=== PATIENT | female | born 1995 | race African-American/Black ===

== ENCOUNTER 2019-12-16 10:30 | Emergency (ER) | payer OTHER ==
[2019-12-16 10:57] LABS: BILIRUBIN,URINE NEGATIVE (NEGATIVE); GLUCOSE, URINE (UA) NEGATIVE (NEGATIVE); KETONES,URINE (UA) TRACE mg/dL (NEGATIVE); LEUKOCYTE ESTERASE, URINE NEGATIVE (NEGATIVE); NITRITE,URINE NEGATIVE (NEGATIVE); OCCULT BLOOD,URINE NEGATIVE (NEGATIVE); PROTEIN,URINE NEGATIVE (NEGATIVE); UROBILINOGEN,URINE 1 (NORMAL) E.U./dL (NORMAL)
[2019-12-16 10:59] LABS: CLARITY,URINE SL. CLOUDY (CLEAR); HCG UR QUAL POSITIVE
[2019-12-16 11:09] LABS: BACTERIA,URINE Moderate /HPF (None Seen); RBC,URINE 0-5 /HPF (0-5); SQUAMOUS EPITHELIAL CELL,UR MANY Squamous (<= Few)
--- NOTE | 2019-12-16 12:33 | ED Physician Documentation ---
PD HPI FEMALE - Stated complaint Stated Complaint: FEMALE - 6WK - Chief complaint Chief Complaint: Abd Pain - History obtained from History obtained from: Patient - History of Present Illness Timing - onset: Today Timing - duration: Days (1) Timing - details: Gradual onset Pain level max: 2 Pain level max: 2 Associated symptoms: Pelvic pain (States occasional cramping). No: Vaginal pain, Vaginal bleeding, Vaginal discharge, Dysuria, Urinary frequency, Hematuria Contributing factors: [employer] History: G (1), P (0) Recently seen: Not recently seen - Additional information Additional information: Patient believes that she is approximately 6 weeks . She states she has had some lower abdominal cramping. No vaginal bleeding or discharge. Has not seen an OB yet. Review of Systems Constitutional: denies: Fever, Chills GI: denies: Vomiting, Diarrhea Skin: denies: Rash Musculoskeletal: denies: Neck pain, Back pain Neurologic: denies: Headache PD PAST MEDICAL HISTORY - Past Medical History Past Medical History: No - Past Surgical History Past Surgical History: No - Present Medications Home Medications: Ambulatory Orders Medication Instructions Recorded Confirmed Pnv No.103/Folic/Om3s/Fish Oil 12/16/19 12/16/19 [ Gummies] - Allergies Allergies/Adverse Reactions: Allergies Allergy/AdvReac Type Severity Reaction Status Date / Time No Known Drug Allergies Allergy Verified 12/16/19 10:36 PD ED PE NORMAL - Vitals Vital signs reviewed: Yes - General General: Alert and oriented X 3, No acute distress, Well developed/nourished - HEENT HEENT: Moist mucous membranes - Neck Neck: Supple, no meningeal sign - Cardiac Cardiac: RRR, Strong equal pulses - Respiratory Respiratory: No respiratory distress, Clear bilaterally - Abdomen Abdomen: Soft, Non tender, Non distended - Female Female : Pt declined - Back Back: No CVA TTP, No spinal TTP - Derm Derm: Warm and dry - Extremities Extremities: No edema - Neuro Neuro: Alert and oriented X 3 - Psych Psych: Normal mood, Normal affect Results - Vitals Vitals: Vital Signs - 24 hr 12/16/19 12/16/19 12/16/19 10:33 12:36 14:00 Temperature 36.8 C 36.9 C 37.1 C Heart Rate 65 65 70 Respiratory 16 16 16 Rate Blood Pressure 142/67 H 139/70 H 134/70 H O2 Saturation 100 99 99 Oxygen O2 Source Room air - Labs Labs: Laboratory Tests 12/16/19 12/16/19 12/16/19 10:45 12:25 12:25 WBC 6.3 RBC 4.28 Hgb 11.6 L Hct 36.3 L MCV 84.8 MCH 27.1 MCHC 32.0 RDW 14.6 Plt Count 348 MPV 9.0 Neut # (Auto) 3.8 Lymph # (Auto) 1.8 [place] # (Auto) 0.5 Eos # (Auto) 0.1 Baso # (Auto) 0.0 Absolute Nucleated RBC 0.00 Nucleated RBC % 0.0 Sodium Potassium Chloride Carbon Dioxide Anion Gap BUN Creatinine Estimated GFR (MDRD) Glucose Calcium Total Bilirubin AST ALT Alkaline Phosphatase Total Protein Albumin Globulin Albumin/Globulin Ratio Lipase HCG, Quant 90617.00 Urine Color YELLOW Urine Clarity SL. CLOUDY Urine pH 6.0 Ur Specific [place] 1.025 Urine Protein NEGATIVE Urine Glucose (UA) NEGATIVE Urine Ketones TRACE Urine Occult Blood NEGATIVE Urine Nitrite NEGATIVE Urine Bilirubin NEGATIVE Urine Urobilinogen 1 (NORMAL) Ur Leukocyte Esterase NEGATIVE Urine RBC 0-5 Urine WBC 0-3 Ur Squamous Epith Cells MANY Squamous H Urine Bacteria Moderate H Ur Microscopic Review INDICATED Urine Culture Comments NOT INDICATED Urine HCG, Qual POSITIVE Blood Type 12/16/19 12/16/19 12:28 12:28 WBC RBC Hgb Hct MCV MCH MCHC RDW Plt Count MPV Neut # (Auto) Lymph # (Auto) [place] # (Auto) Eos # (Auto) Baso # (Auto) Absolute Nucleated RBC Nucleated RBC % Sodium 134 L Potassium 3.6 Chloride 100 L Carbon Dioxide 23 Anion Gap 11.0 BUN 9 Creatinine 0.8 Estimated GFR (MDRD) 105 Glucose 94 Calcium 9.6 Total Bilirubin 0.4 AST 18 ALT 16 Alkaline Phosphatase 80 Total Protein 8.2 Albumin 4.0 Globulin 4.2 Albumin/Globulin Ratio 1.0 Lipase 28 HCG, Quant Urine Color Urine Clarity Urine pH Ur Specific [place] Urine Protein Urine Glucose (UA) Urine Ketones Urine Occult Blood Urine Nitrite Urine Bilirubin Urine Urobilinogen Ur Leukocyte Esterase Urine RBC Urine WBC Ur Squamous Epith Cells Urine Bacteria Ur Microscopic Review Urine Culture Comments Urine HCG, Qual Blood Type O POSITIVE - Rads (name of study) OB ultrasound Radiology: Prelim report reviewed, EMP read contemporaneously, See rad report (Single viable intrauterine at EGA weeks/days with JENNIFER 08/10/2020 based on crown-rump length, which is concordant with clinical dates. 2. Assigned dating is JENNIFER 08/10/2020 based on current ultrasound. ) PD MEDICAL DECISION MAKING - ED course Complexity details: reviewed results, re-evaluated patient, considered differential, d/w patient, d/w family ED course: Patient with a normal intrauterine . No vaginal bleeding. Urinalysis appears contaminated. No symptoms of UTI. Will not treat at this time. We will have her follow-up with her doctor for further care. Patient counseled regarding signs and symptoms for which I believe and urgent re-evaluation would be necessary. Patient with good understanding of and agreement to plan and is comfortable going home at this time This document was made in part using voice recognition software. While efforts are made to proofread this document, sound alike and grammatical errors may occur. Departure - Departure Disposition: 01 Home, Self Care Clinical Impression: Pelvic cramping Qualifiers: Weeks of gestation: less than 8 weeks Qualified Code(s): Z3A.01 - Less than 8 weeks gestation of Condition: Good Instructions: ED Care, ED Preg Established Normal Sxs Follow-Up: Cristy Daniels ARNP [Primary Care Provider] - Within 1 week Comments: Your ultrasound appears normal today. You have an intrauterine at approximately 6 weeks. Follow-up with your doctor for further care. Discharge Date/Time: 12/16/19 15:05
[2019-12-16 12:34] LABS: BASOPHILS % (AUTO) 0.3 %; EOSINOPHILS # (AUTO) 0.1 10^3/uL (0.0-0.7); EOSINOPHILS % (AUTO) 1.1 %; HGB - HEMOGLOBIN 11.6 g/dL (12.0-16.0); LYMPHOCYTES # (AUTO) 1.8 10^3/uL (1.5-3.5); MEAN CORPUSCULAR HEMOGLOBIN 27.1 pg (27.0-31.0); MEAN CORPUSCULAR VOLUME 84.8 fL (81.0-99.0); MONOCYTES # (AUTO) 0.5 10^3/uL (0.0-1.0); MONOCYTES % (AUTO) 8.3 %; NEUTROPHILS # (AUTO) 3.8 10^3/uL (1.5-6.6); NEUTROPHILS % (AUTO) 61.1 %; PLT - PLATELET COUNT 348 10^3/uL (130-450); RED BLOOD COUNT 4.28 10^6/uL (4.20-5.40); RED CELL DISTRIBUTION WIDTH 14.6 % (12.0-15.0); WHITE BLOOD COUNT 6.3 x10^3/uL (4.8-10.8)
[2019-12-16 13:31] LABS: BILIRUBIN,TOTAL 0.4 mg/dL (0.2-1.0); CALCIUM 9.6 mg/dL (8.5-10.3); CREATININE 0.8 mg/dL (0.4-1.0); TOTAL PROTEIN 8.2 g/dL (6.7-8.2)
--- NOTE | 2019-12-16 14:36 | Ultrasound Report ---
Reason: early , lower abd pain Procedure Date: 12/16/2019 Accession Number: [id number] / [id number] Procedure: US - OB First Trimester CPT Code: Final Report FULL RESULT: EXAM: FIRST TRIMESTER OBSTETRIC ULTRASOUND (Less than 11 weeks) EXAM DATE: 12/16/2019 02:12 PM. CLINICAL HISTORY: Early , lower abd pain. LMP: 11/03/2019. COMPARISONS: None. TECHNIQUE: Transabdominal and transvaginal ultrasound examination with static image documentation. CLINICAL DATES: EGA 6 weeks 1 day with JENNIFER 08/09/2020 based on LMP. ASSESSMENT: Gestational Sac: Single intrauterine. Mean gestational sac diameter: 11.2 mm = 5 weeks 6 days. Embryo: CRL (crown-rump length) 3.9 mm = 6 weeks 0 days. Cardiac activity: 104 beats per minute. Yolk sac: 2.9 mm. Amniotic fluid: Not accurately assessed at this gestational age. Early placenta: Not visible at this gestational age. Other: No perigestational fluid collection demonstrated. MATERNAL STRUCTURES: Uterus: Anteverted/Retroverted. Unremarkable. Cervix: Closed. Nabothian cysts.. Right Ovary/Adnexa: The ovary measures 2.4 x 1.8 x 1.9 cm, volume 4.3 cc. Unremarkable. Left Ovary/Adnexa: The ovary measures 3.4 x 2.8 x 2.5 cm, volume 5.0 cc. There is a 1.4 cm diameter corpus luteum. Free Fluid: None. Other: None. IMPRESSION: 1. Single viable intrauterine at EGA weeks/days with JENNIFER 08/10/2020 based on crown-rump length, which is concordant with clinical dates. 2. Assigned dating is JENNIFER 08/10/2020 based on current ultrasound. RADIA
[2019-12-16 14:54] VITALS: BP 134/70
== END 2019-12-16 15:05 | disposition home or self-care (01) ==
LOC: ED 10:30
DX: O99.89 Other specified diseases and conditions complicating pregnancy, childbirth and the puerperium (principal); R10.2 Pelvic and perineal pain; Z3A.01 Less than 8 weeks gestation of pregnancy
CPT/HCPCS: 36415; 76801; 76817; 80053; 81001; 81003; 81025; 83690; 84702; 85025; 86900; 86901; 87086; 99284

== ENCOUNTER 2020-04-01 15:37 | Emergency (ER) | payer OTHER ==
[2020-04-01 15:54] VITALS: BP 141/65
--- NOTE | 2020-04-01 16:23 | ED Physician Documentation ---
PD HPI HEADACHE - Stated complaint Stated Complaint: FRANCIS, HIGH BP - Chief complaint Chief Complaint: Heent - History obtained from History obtained from: Patient (This [place] [facility] [place] with a report of hypertension and headache.Labs to work her up for preeclampsia. When she arrived in the waiting room I updated the on-call OB, Dr. Peralta and ordered reportedly Dr. Peralta felt it best if the patient went over to labor and delivery and and I did not personally see the patient.) PD PAST MEDICAL HISTORY - Past Surgical History Past Surgical History: No - Present Medications Home Medications: Ambulatory Orders Medication Instructions Recorded Confirmed Pnv No.103/Folic/Om3s/Fish Oil 12/16/19 12/16/19 [ Gummies] - Allergies Allergies/Adverse Reactions: Allergies Allergy/AdvReac Type Severity Reaction Status Date / Time No Known Drug Allergies Allergy Verified 04/01/20 15:49 - Social History Does the pt smoke?: No Smoking Status: Never smoker Results - Vitals Vitals: Vital Signs - 24 hr 04/01/20 15:49 Temperature 36.4 C L Heart Rate 85 Respiratory 15 Rate Blood Pressure 141/65 H O2 Saturation 100 Oxygen O2 Source Room air Departure - Departure Disposition: ED Place in Observation Clinical Impression: Elevated blood pressure affecting in second trimester, antepartum Headache Qualifiers: Headache type: unspecified Headache chronicity pattern: acute headache Intractability: not intractable Qualified Code(s): R51 - Headache Condition: Stable
== END 2020-04-01 16:22 ==
LOC: ED 15:37
DX: Z53.9 Procedure and treatment not carried out, unspecified reason (principal)
CPT/HCPCS: 80053; 83615; 83690; 85025

== ENCOUNTER 2020-04-03 14:11 | Outpatient (CLI) | payer OTHER ==
[2020-04-03] MEDS ORDERED: IRON DEXTRAN 1,000 MG in SODIUM CHLORIDE 0.9% 250 ML IV ONE (14:14)
[2020-04-03 16:17] VITALS: BP 136/71
--- NOTE | 2020-04-03 16:26 | PROVIDER PROGRESS NOTE ---
- HPI Chief Complaint: Other Current : Vital Signs Temperature 97.9 F 04/03/20 14:11 Heart Rate 99 04/03/20 14:11 Respiratory Rate 16 04/03/20 14:11 Blood Pressure 140/70 H 04/03/20 14:11 Temperature 97.9 F 04/03/20 14:11 Heart Rate 92 04/03/20 16:00 Respiratory Rate 16 04/03/20 16:00 Blood Pressure 136/71 H 04/03/20 16:00 O2 Saturation 23yo G1 at 21w5d returns for BP check and IV iron. She was seen on 04/01 with headaches, elevated BP (140-160/70-80's), anemia and hypokalemia. She was diagnosed with chronic HTN based on elevated BP's here at 6 weeks and started on nifedipine 30 XL. She was also given KCl 40mEq PO. Her microcytic anemia was treated with 1000mg IV iron today. She reports feeling tired but much better, headache resolved. Has only needed one fioricet. - Procedures OB Procedure Performed: Other (Doppler normal) NST Procedure: NST Procedure Not indicated due to early gestational age. +doppler Stop Time 16:05 Service Date of procedure: 04/03/20 - Plan Plan: BP's here today improved 130-140's/70-80 but not at target. Will increase nifedipine to 60mg xl qd. Continue baby aspirin and calcium/vit D Pt will initiate transfer of care from [facility].
== END 2020-04-03 16:20 | disposition home or self-care (01) ==
LOC: WFO 14:11 → FBP 14:13 → WFO 16:20
PROVIDERS: ATTEND Obstetrics & Gynecology
DX: O99.012 Anemia complicating pregnancy, second trimester (principal); D50.9 Iron deficiency anemia, unspecified; O10.912 Unspecified pre-existing hypertension complicating pregnancy, second trimester; Z3A.21 21 weeks gestation of pregnancy
CPT/HCPCS: 96365; J1750

== ENCOUNTER 2020-04-12 14:49 | Outpatient (CLI) | payer OTHER | END 2020-04-12 23:59 | disposition EMS.NT | LOC: EMS 14:49 | PROVIDERS: ATTEND Surgery | DX: R00.2 Palpitations (principal); R42 Dizziness and giddiness ==

== ENCOUNTER 2020-05-31 08:33 | Outpatient (CLI) | payer OTHER ==
--- NOTE | 2020-05-31 11:26 | Ultrasound Report ---
PROCEDURE: OB F/U or Repeat INDICATIONS: HYPERTENSION IN OUTSIDE/PRIOR DATING DATA: Last menstrual period (LMP): 11/03/2019. LMP-based estimated date of delivery (JENNIFER): 08/09/2020. First dating scan (date and location): 12/16/2019. Estimated date of delivery (JENNIFER) from first dating scan: 08/10/2020. TECHNIQUE: Real-time scanning was performed of the fetus, with image documentation and biometric measurements. Endovaginal scanning: Not performed COMPARISON: Correlation made to outside ultrasound report dated 03/22/2020 FINDINGS: General: A single living intrauterine gestation is present. Presentation: Cephalic Placenta: Placental position is left lateral, without previa. Amniotic fluid index: 10.2 cm, normal for gestational age. heart rate: 149 beats per minute. Maternal cervical canal: Approximately 4.5 cm long; normal length is 2.5 cm or more. biometrics: Biparietal diameter: 7.8 cm, 31 weeks, 2 days Head circumference: 28.5 cm, 39 weeks, 2 days Abdominal circumference: 27.0 cm, 31 weeks, 1 day Femur length: 5.8 cm, 30 weeks, 2 days Estimated gestational age from initial scan: 29 weeks, 6 days. Composite gestational age from present scan: 31 weeks, 0 days Estimated weight and percentile: 1662 g, 30 weeks, 4 days, 75th percentile Measurement variability in biometric dating: +/- 10 days from 12-20 weeks gestation, +/- 2 weeks from 20-30 weeks gestation, +/- 3 weeks at 30 weeks gestation or more. IMPRESSION: 1. Single live intrauterine . 2. Appropriate and symmetric growth, 8 days ahead of the clinically assigned gestational age. Reviewed by: Yolanda Castillo MD on 05/31/2020 11:25 AM PDT Approved by: Yolanda Castillo MD on 05/31/2020 11:25 AM PDT Station ID: [id number]
== END 2020-05-31 08:34 | disposition home or self-care (01) ==
LOC: DI 08:33
PROVIDERS: ATTEND Obstetrics & Gynecology
DX: O10.911 Unspecified pre-existing hypertension complicating pregnancy, first trimester (principal)
CPT/HCPCS: 76816

== ENCOUNTER 2020-07-01 10:32 | Outpatient (CLI) | payer OTHER ==
[2020-07-01 11:10] LABS: % IRON SATURATION 51 % (20-50); IRON 215 ug/dL (28-170); TOTAL IRON BINDING CAPACITY 423 ug/dL (250-450); TRANSFERRIN 302 mg/dL (192-382)
[2020-07-01 11:37] LABS: HB2 TOTAL 11.5 g/dL; HEMOGLOBIN A1C 0.37 g/dL; HEMOGLOBIN A1C % 5.1 % (4.6-6.2)
== END 2020-07-01 10:33 | disposition home or self-care (01) ==
LOC: LAB 10:32
PROVIDERS: ATTEND Obstetrics & Gynecology
DX: O99.013 Anemia complicating pregnancy, third trimester (principal); O99.810 Abnormal glucose complicating pregnancy
CPT/HCPCS: 36415; 82728; 82951; 82952; 83036; 83540; 84466

== ENCOUNTER 2020-07-11 11:59 | Outpatient (CLI) | payer OTHER ==
--- NOTE | 2020-07-11 15:34 | Ultrasound Report ---
PROCEDURE: OB F/U or Repeat INDICATIONS: HYPERTENSION IN OUTSIDE/PRIOR DATING DATA: Last menstrual period (LMP): 11/03/2019. LMP-based estimated date of delivery (JENNIFER): 08/09/2020. First dating scan (date and location): 12/16/2019. Estimated date of delivery (JENNIFER) from first dating scan: 08/10/2020. TECHNIQUE: Real-time scanning was performed of the fetus, with image documentation and biometric measurements. Endovaginal scanning: Not needed COMPARISON: Prior OB ultrasounds for this . FINDINGS: General: A single living intrauterine gestation is present. Presentation: Cephalic Placenta: Placental position is left lateral, without previa. Amniotic fluid index: Normal for gestational age at 9.5 cm. heart rate: 155 beats per minute. biometrics: Biparietal diameter: 9.1 cm, 37 weeks 0 days Head circumference: 32.6 cm, 37 weeks 0 days Abdominal circumference: 32.4 cm, 36 weeks 2 days Femur length: 6.7 cm, 34 weeks 2 days Estimated gestational age from initial scan: 35 weeks 5 days. Composite gestational age from present scan: 36 weeks 1 day Estimated weight and percentile: 2811 g, 57th percentile Measurement variability in biometric dating: +/- 10 days from 12-20 weeks gestation, +/- 2 weeks from 20-30 weeks gestation, +/- 3 weeks at 30 weeks gestation or more. Other: Not applicable. IMPRESSION: Appropriate interval growth, no anomaly suspected, current estimated weight is 2811 g, at the 57th percentile for current gestational age. The delivery date is projected to be c entered on 08/10/2020. Reviewed by: Mickey Bradford MD on 07/11/2020 3:33 PM PDT Approved by: Mickey Bradford MD on 07/11/2020 3:33 PM PDT Station ID: [id number]
== END 2020-07-11 12:00 | disposition home or self-care (01) ==
LOC: DI 11:59
PROVIDERS: ATTEND Obstetrics & Gynecology
DX: O16.1 Unspecified maternal hypertension, first trimester (principal); Z3A.36 36 weeks gestation of pregnancy
CPT/HCPCS: 76816

== ENCOUNTER 2020-07-14 10:33 | Outpatient (CLI) | payer OTHER ==
[2020-07-14 11:11] VITALS: BP 136/70
--- NOTE | 2020-07-14 16:50 | PROCEDURE REPORT ---
- HPI Diagnosis/Indication for NST: Gestational Diabetes Current EDU 08/09/20 Gestation 36 Weeks and 2 Days 1 Para 0 Vital Signs Temperature 98.2 F 07/14/20 10:53 Heart Rate 81 07/14/20 10:53 Respiratory Rate 17 07/14/20 10:53 Blood Pressure 147/71 H 07/14/20 10:53 O2 Saturation 100 07/14/20 10:53 Temperature 98.2 F 07/14/20 10:53 Heart Rate 81 07/14/20 10:53 Respiratory Rate 17 07/14/20 10:53 Blood Pressure 136/70 H 07/14/20 11:11 O2 Saturation 100 07/14/20 10:53 - NST Procedure NST Procedure Start Date 07/14/20 Start Time 10:48 Stop Time 11:18 Vibroacoustic Stimulation Used No Patient States Movement Yes - Results and Plan Findings/Impression: Category 1 NST [place] neg Continue current surveillance
== END 2020-07-14 11:39 | disposition home or self-care (01) ==
LOC: WFO 10:33 → FBP 10:41 → WFO 11:39
PROVIDERS: ATTEND Obstetrics & Gynecology
DX: O24.419 Gestational diabetes mellitus in pregnancy, unspecified control (principal); Z3A.36 36 weeks gestation of pregnancy
CPT/HCPCS: 59025

== ENCOUNTER 2020-07-18 10:19 | Outpatient (CLI) | payer OTHER ==
[2020-07-18 11:37] LABS: BASOPHILS % (AUTO) 0.3 %; EOSINOPHILS % (AUTO) 0.4 %; HGB - HEMOGLOBIN 11.3 g/dL (12.0-16.0); LYMPHOCYTES # (AUTO) 1.6 10^3/uL (1.5-3.5); LYMPHOCYTES % (AUTO) 21.4 %; MEAN CORPUSCULAR HGB CONC 33.4 g/dL (32.0-36.0); MEAN CORPUSCULAR VOLUME 86.9 fL (81.0-99.0); MEAN PLATELET VOLUME 9.7 fL (7.9-10.8); MONOCYTES # (AUTO) 0.7 10^3/uL (0.0-1.0); MONOCYTES % (AUTO) 9.8 %; NEUTROPHILS # (AUTO) 4.9 10^3/uL (1.5-6.6); NEUTROPHILS % (AUTO) 67.6 %; PLT - PLATELET COUNT 267 10^3/uL (130-450); RED BLOOD COUNT 3.89 10^6/uL (4.20-5.40); RED CELL DISTRIBUTION WIDTH 14.4 % (12.0-15.0); WHITE BLOOD COUNT 7.3 x10^3/uL (4.8-10.8)
[2020-07-18 11:43] LABS: ALBUMIN/GLOBULIN RATIO 0.8 (1.0-2.2); BILIRUBIN,TOTAL 0.4 mg/dL (0.2-1.0); CALCIUM 9.6 mg/dL (8.5-10.3); CREATININE 0.5 mg/dL (0.4-1.0)
[2020-07-18 12:27] LABS: CREATININE,URINE 235.8 mg/dL; PROTEIN/CREATININE RATIO,URINE 0.1 (<=0.2)
[2020-07-18 13:00] VITALS: BP 139/83
--- NOTE | 2020-07-18 18:42 | PROCEDURE REPORT ---
- HPI Diagnosis/Indication for NST: Gestational Diabetes (and chronic HTN) Current EDU 08/09/20 Gestation 36 Weeks and 6 Days 1 Para 0 Vital Signs Temperature 98.2 F 07/18/20 10:35 Heart Rate 100 07/18/20 10:35 Respiratory Rate 18 07/18/20 10:35 Blood Pressure 138/77 H 07/18/20 10:35 O2 Saturation 100 07/18/20 10:35 Temperature 98.2 F 07/18/20 10:35 Heart Rate 92 07/18/20 12:30 Respiratory Rate 18 07/18/20 11:45 Blood Pressure 139/83 H 07/18/20 12:30 O2 Saturation 100 07/18/20 12:30 - NST Procedure NST Procedure Start Date 07/18/20 Start Time 10:34 Stop Time 11:22 Vibroacoustic Stimulation Used No Patient States Movement Yes - Results and Plan Findings/Impression: Here for NST, also complaining of upper abdominal pain and body-wide swelling. Swelling is better today. Upper abd pain is bilateral, not worse or better with much of anything--not with eating or movement. Discomfort is intermittent and mild. No visual changes. BP normal. Abd soft, mildly tender throughout, nothing more in the RUQ. No rebound or guarding. No mass. Fingers slightly swollen and no LE edema. DTR 1+. P:C ratio and PIH labs were normal. NST: category 1 [place]: neg A/P: Chronic HTN and GDM: normal surveillance, continue. Upper abdominal pain: tender throughout not just RUQ, mild, chronic over the past few days, no associated symptoms, normal BP and PIH labs. Likely /stretching related. Return PRN worsening pain or other preeclampsia sx.
== END 2020-07-18 12:55 | disposition home or self-care (01) ==
LOC: WFO 10:19 → FBP 10:25 → WFO 12:55
PROVIDERS: ATTEND Obstetrics & Gynecology
DX: O24.419 Gestational diabetes mellitus in pregnancy, unspecified control (principal); O10.913 Unspecified pre-existing hypertension complicating pregnancy, third trimester; O99.89 Other specified diseases and conditions complicating pregnancy, childbirth and the puerperium; R10.9 Unspecified abdominal pain; Z3A.36 36 weeks gestation of pregnancy
CPT/HCPCS: 36415; 59025; 80053; 82570; 84156; 85025

== ENCOUNTER 2020-07-21 10:08 | Outpatient (CLI) | payer OTHER ==
[2020-07-21 10:22] VITALS: BP 137/73
[2020-07-21 20:37] LABS: TRICHOMONAS VAGINALIS DNA NEGATIVE (NEGATIVE)
--- NOTE | 2020-07-23 15:43 | PROCEDURE REPORT ---
- HPI Diagnosis/Indication for NST: Gestational Diabetes Current EDU 08/09/20 Gestation 37 Weeks and 2 Days 1 Para 0 Vital Signs Temperature 98.4 F 07/21/20 10:21 Heart Rate 96 07/21/20 10:21 Respiratory Rate 16 07/21/20 10:21 Blood Pressure 137/73 H 07/21/20 10:21 O2 Saturation 100 07/21/20 10:21 Temperature 98.4 F 07/21/20 10:21 Heart Rate 96 07/21/20 10:21 Respiratory Rate 16 07/21/20 10:21 Blood Pressure 137/73 H 07/21/20 10:21 O2 Saturation 100 07/21/20 10:21 - NST Procedure NST Procedure Start Date 07/21/20 Start Time 10:20 Stop Time 11:05 Vibroacoustic Stimulation Used No Patient States Movement Yes - Results and Plan Findings/Impression: Category 1 NST Rare contractions Continue surveillance as planned.
== END 2020-07-21 11:15 | disposition home or self-care (01) ==
LOC: WFO 10:08 → FBP 10:11 → WFO 11:15
PROVIDERS: ATTEND Obstetrics & Gynecology
DX: O24.419 Gestational diabetes mellitus in pregnancy, unspecified control (principal); Z3A.37 37 weeks gestation of pregnancy
CPT/HCPCS: 59025; 87081; 87491; 87591; 87661

== ENCOUNTER 2020-07-21 11:22 | Outpatient (CLI) | payer OTHER ==
--- NOTE | 2020-07-21 16:36 | Ultrasound Report ---
PROCEDURE: OB Limited INDICATIONS: HTN IN OUTSIDE/PRIOR DATING DATA: Last menstrual period (LMP): 11/03/2019. LMP-based estimated date of delivery (JENNIFER): 08/09/2020. First dating scan (date and location): 12/07/2019. Estimated date of delivery (JENNIFER) from first dating scan: 08/10/2020. TECHNIQUE: Real-time scanning was performed of the fetus, with image documentation. COMPARISON: OB ultrasound 12/16/2019, 05/31/2020, 07/11/2020 FINDINGS: A single living intrauterine gestation is present. Presentation: Cephalic Placenta: Placental position is lateral, without previa. Amniotic fluid index: 10 cm, 17th percentile for gestational age. Largest pocket 5.1 cm heart rate: 137 beats per minutes. Maternal cervical canal: 4.6 cm long; normal length is 2.5 cm or more. Estimated gestational age from initial scan: 37 weeks 1 day. IMPRESSION: 1. Single live intrauterine with SARMAD at the 17th percentile. Reviewed by: Janessa Puri MD on 07/21/2020 4:35 PM PDT Approved by: Janessa Puri MD on 07/21/2020 4:35 PM PDT Station ID: [id number]
== END 2020-07-21 11:23 | disposition home or self-care (01) ==
LOC: DI 11:22
PROVIDERS: ATTEND Obstetrics & Gynecology
DX: O24.419 Gestational diabetes mellitus in pregnancy, unspecified control (principal); O99.211 Obesity complicating pregnancy, first trimester; O36.61X0 Maternal care for excessive fetal growth, first trimester, not applicable or unspecified; Z3A.37 37 weeks gestation of pregnancy
CPT/HCPCS: 76815

== ENCOUNTER 2020-07-25 10:12 | Outpatient (CLI) | payer OTHER ==
[2020-07-25 10:46] LABS: BASOPHILS % (AUTO) 0.3 %; EOSINOPHILS % (AUTO) 0.3 %; HGB - HEMOGLOBIN 11.4 g/dL (12.0-16.0); LYMPHOCYTES # (AUTO) 1.6 10^3/uL (1.5-3.5); MEAN CORPUSCULAR HEMOGLOBIN 29.3 pg (27.0-31.0); MEAN CORPUSCULAR HGB CONC 33.3 g/dL (32.0-36.0); MEAN CORPUSCULAR VOLUME 87.9 fL (81.0-99.0); MEAN PLATELET VOLUME 9.3 fL (7.9-10.8); MONOCYTES # (AUTO) 0.5 10^3/uL (0.0-1.0); MONOCYTES % (AUTO) 8.2 %; NEUTROPHILS # (AUTO) 4.4 10^3/uL (1.5-6.6); NEUTROPHILS % (AUTO) 66.7 %; PLT - PLATELET COUNT 254 10^3/uL (130-450); RED BLOOD COUNT 3.89 10^6/uL (4.20-5.40); RED CELL DISTRIBUTION WIDTH 14.6 % (12.0-15.0); WHITE BLOOD COUNT 6.6 x10^3/uL (4.8-10.8)
[2020-07-25 10:59] LABS: ALBUMIN 2.8 g/dL (3.2-5.5); ALBUMIN/GLOBULIN RATIO 0.7 (1.0-2.2); BILIRUBIN,TOTAL 0.4 mg/dL (0.2-1.0); CALCIUM 9.6 mg/dL (8.5-10.3); CREATININE 0.7 mg/dL (0.4-1.0); TOTAL PROTEIN 6.8 g/dL (6.7-8.2)
[2020-07-25 11:11] VITALS: BP 139/75
--- NOTE | 2020-07-25 11:26 | PROCEDURE REPORT ---
- HPI Diagnosis/Indication for NST: Gestational Hypertension Current EDU 08/09/20 Gestation 37 Weeks and 6 Days 1 Para 0 Vital Signs Temperature 98.4 F 07/25/20 10:25 Heart Rate 75 07/25/20 10:25 Respiratory Rate 16 07/25/20 10:25 Blood Pressure 139/75 H 07/25/20 10:25 O2 Saturation 100 07/25/20 10:25 Temperature 98.4 F 07/25/20 10:25 Heart Rate 75 07/25/20 10:25 Respiratory Rate 16 07/25/20 10:25 Blood Pressure 139/75 H 07/25/20 10:25 O2 Saturation 100 07/25/20 10:25 - NST Procedure NST Procedure Start Date 07/25/20 Start Time 10:24 Stop Time 10:46 Vibroacoustic Stimulation Used No Patient States Movement Yes - Results and Plan Findings/Impression: Category 1 NST Occasional contractions Normal blood PIH labs Urine P:C pending will call pt if abnormal. Continue ongoing surveillance, IOL has been scheduled.
[2020-07-25 11:31] LABS: CREATININE,URINE 229.3 mg/dL; PROTEIN/CREATININE RATIO,URINE 0.1 (<=0.2)
== END 2020-07-25 10:55 | disposition home or self-care (01) ==
LOC: WFO 10:12 → FBP 10:17 → WFO 10:55
PROVIDERS: ATTEND Obstetrics & Gynecology
DX: O13.3 Gestational [pregnancy-induced] hypertension without significant proteinuria, third trimester (principal); Z3A.37 37 weeks gestation of pregnancy
CPT/HCPCS: 36415; 59025; 80053; 82570; 84156; 85025

== ENCOUNTER 2020-07-26 14:12 | Outpatient (CLI) | payer OTHER ==
[2020-07-26 14:58] LABS: BASOPHILS % (AUTO) 0.1 %; EOSINOPHILS % (AUTO) 0.3 %; HGB - HEMOGLOBIN 11.3 g/dL (12.0-16.0); LYMPHOCYTES # (AUTO) 1.4 10^3/uL (1.5-3.5); LYMPHOCYTES % (AUTO) 19.8 %; MEAN CORPUSCULAR HEMOGLOBIN 29.4 pg (27.0-31.0); MEAN CORPUSCULAR HGB CONC 33.5 g/dL (32.0-36.0); MEAN CORPUSCULAR VOLUME 87.8 fL (81.0-99.0); MEAN PLATELET VOLUME 9.4 fL (7.9-10.8); MONOCYTES # (AUTO) 0.9 10^3/uL (0.0-1.0); MONOCYTES % (AUTO) 12.3 %; NEUTROPHILS # (AUTO) 4.7 10^3/uL (1.5-6.6); NEUTROPHILS % (AUTO) 67.1 %; PLT - PLATELET COUNT 263 10^3/uL (130-450); RED BLOOD COUNT 3.84 10^6/uL (4.20-5.40); RED CELL DISTRIBUTION WIDTH 14.6 % (12.0-15.0); WHITE BLOOD COUNT 7.1 x10^3/uL (4.8-10.8)
[2020-07-26 15:18] LABS: ALBUMIN 2.9 g/dL (3.2-5.5); ALBUMIN/GLOBULIN RATIO 0.7 (1.0-2.2); BILIRUBIN,TOTAL 0.5 mg/dL (0.2-1.0); CALCIUM 9.4 mg/dL (8.5-10.3); CREATININE 0.6 mg/dL (0.4-1.0); TOTAL PROTEIN 6.9 g/dL (6.7-8.2); URIC ACID 4.7 mg/dL (2.6-7.2)
[2020-07-26 15:34] LABS: CREATININE,URINE 292.1 mg/dL; PROTEIN/CREATININE RATIO,URINE 0.1 (<=0.2)
--- NOTE | 2020-07-26 16:30 | PROVIDER PROGRESS NOTE ---
- HPI Chief Complaint: Headache (38 week Primip with FRANCIS.) Current : Current EDU 08/09/20 Gestation 38 Weeks and 0 Days 1 Para 0 Vital Signs Temperature 37.1 C 07/26/20 14:25 Heart Rate 79 07/26/20 14:25 Respiratory Rate 07/26/20 14:25 Blood Pressure 142/66 H 07/26/20 14:25 O2 Saturation 100 07/26/20 14:25 Temperature 37.1 C 07/26/20 14:25 Heart Rate 79 07/26/20 14:25 Respiratory Rate 07/26/20 14:25 Blood Pressure 128/62 07/26/20 15:30 O2 Saturation 100 07/26/20 14:25 - Procedures OB Procedure Performed: NST (Reactive. DTR +1 [place]) Diagnosis/Indication for NST: Other (Headach.Labs all normal. P/C 0.1 CBC normal. Head ach decreasing wiht time.) NST Procedure: NST Procedure Start Time 10:24 Stop Time 10:46 Service Date of procedure: 07/26/20 Procedure Details: No evidence of PreE. rest, fluids, Tylenol.
[2020-07-26 16:40] VITALS: BP 128/64
== END 2020-07-26 16:30 | disposition home or self-care (01) ==
LOC: WFO 14:12 → FBP 14:13 → WFO 16:30
PROVIDERS: ATTEND Obstetrics & Gynecology
DX: O99.89 Other specified diseases and conditions complicating pregnancy, childbirth and the puerperium (principal); R51 Headache; Z3A.38 38 weeks gestation of pregnancy
CPT/HCPCS: 36415; 80053; 82570; 84156; 84550; 85025; 99214

== ENCOUNTER 2020-07-28 12:12 | Outpatient (CLI) | payer OTHER ==
[2020-07-28 12:43] VITALS: BP 138/61
--- NOTE | 2020-08-03 12:11 | PROCEDURE REPORT ---
- HPI Diagnosis/Indication for NST: Gestational Diabetes Current EDU 08/09/20 Gestation 38 Weeks and 2 Days 1 Para 0 Vital Signs Temperature 37.2 C 07/28/20 12:26 Heart Rate 105 H 07/28/20 12:26 Respiratory Rate 17 07/28/20 12:26 Blood Pressure 141/70 H 07/28/20 12:26 O2 Saturation 100 07/28/20 12:26 Temperature 37.2 C 07/28/20 12:26 Heart Rate 95 07/28/20 12:41 Respiratory Rate 17 07/28/20 12:26 Blood Pressure 138/61 H 07/28/20 12:42 O2 Saturation 100 07/28/20 12:26 - NST Procedure NST Procedure Start Date 07/28/20 Start Time 12:20 Stop Time 13:00 Vibroacoustic Stimulation Used No Patient States Movement Yes - Results and Plan Findings/Impression: Reactive NST Plan: continue antinatal testing induce at 39 weeks
== END 2020-07-28 13:00 | disposition home or self-care (01) ==
LOC: WFO 12:12 → FBP 12:15 → WFO 13:00
PROVIDERS: ATTEND Obstetrics & Gynecology
DX: O24.419 Gestational diabetes mellitus in pregnancy, unspecified control (principal); O36.60X0 Maternal care for excessive fetal growth, unspecified trimester, not applicable or unspecified; O16.1 Unspecified maternal hypertension, first trimester; O99.213 Obesity complicating pregnancy, third trimester; Z3A.38 38 weeks gestation of pregnancy
CPT/HCPCS: 59025; 76815

== ENCOUNTER 2020-07-28 13:07 | Outpatient (CLI) | payer OTHER ==
--- NOTE | 2020-07-29 14:17 | Ultrasound Report ---
PROCEDURE: OB Limited INDICATIONS: HYPERTENSION IN OUTSIDE/PRIOR DATING DATA: Last menstrual period (LMP): 11/03/2019. LMP-based estimated date of delivery (JENNIFER): 08/09/2020. First dating scan (date and location): 12/16/2019. Estimated date of delivery (JENNIFER) from first dating scan: 08/10/2020. TECHNIQUE: Real-time scanning was performed of the fetus, with image documentation. COMPARISON: OB ultrasound 07/21/2020, 05/31/2020, 07/11/2020 FINDINGS: A single living intrauterine gestation is present. Presentation: Cephalic Placenta: Placental position is left lateral, without previa. Amniotic fluid index: 8.1 cm, 7.8 percentile for gestational age. Largest pocket 4.3 cm. heart rate: 171 beats per minutes. Maternal cervical canal: Not well seen Estimated gestational age from initial scan: 38 weeks 1 day. IMPRESSION: 1. Single live intrauterine with ultrasound gestational age of 38 weeks 1 day. 2. Amniotic fluid is at the 7.8th percentile, compared to 17th percentile on 07/21/2020. Reviewed by: Janessa Puri MD on 07/29/2020 2:15 PM PDT Approved by: Janessa Puri MD on 07/29/2020 2:15 PM PDT Station ID: [id number]
== END 2020-07-28 13:08 | disposition home or self-care (01) ==
LOC: DI 13:07
PROVIDERS: ATTEND Obstetrics & Gynecology
DX: O24.419 Gestational diabetes mellitus in pregnancy, unspecified control (principal); O36.60X0 Maternal care for excessive fetal growth, unspecified trimester, not applicable or unspecified; O16.1 Unspecified maternal hypertension, first trimester; O99.213 Obesity complicating pregnancy, third trimester; Z3A.38 38 weeks gestation of pregnancy
CPT/HCPCS: 76815

== ENCOUNTER 2020-07-30 03:25 | Inpatient (IN) | payer OTHER ==
[2020-07-30 06:56] LABS: RUPTURE OF MEMBRANES PLUS POSITIVE (NEGATIVE)
[2020-07-30] MEDS ORDERED: OXYTOCIN 10 UNIT/ML VIAL IM PRN (07:09)
[2020-07-30] MEDS ORDERED: LIDOCAINE-MPF 1% 30 ML VIAL ID PRN (07:09)
[2020-07-30] MEDS ORDERED: METHYLERGONOVINE 0.2 MG/ML VIAL IM PRN (07:09)
[2020-07-30] MEDS ORDERED: SODIUM CHLORIDE FLUSH 0.9% 10 ML SYRINGE IVP PRN (07:09)
[2020-07-30] MEDS ORDERED: miSOPROStoL 200 MCG TABLET BC PRN (07:09)
[2020-07-30] MEDS ORDERED: TRANEXAMIC ACID 1,000 MG in SODIUM CHLORIDE 0.9% 100ML 100 ML IV PRN (07:09)
[2020-07-30] MEDS ORDERED: OXYTOCIN/SODIUM CHLORIDE 500 ML IV PRN ×2 (07:09)
[2020-07-30] MEDS ORDERED: CARBOPROST TROMETHAMINE 250 MCG/ML AMP IM PRN (07:09)
[2020-07-30] MEDS ORDERED: fentaNYL 100 MCG/2 ML VIAL IVP PRN (07:09)
[2020-07-30] MEDS ORDERED: ONDANSETRON 4 MG/2 ML VIAL IVP PRN ×2 (07:09→10:19)
[2020-07-30 07:36] LABS: BASOPHILS % (AUTO) 0.1 %; EOSINOPHILS % (AUTO) 0.3 %; HGB - HEMOGLOBIN 11.7 g/dL (12.0-16.0); LYMPHOCYTES # (AUTO) 1.6 10^3/uL (1.5-3.5); LYMPHOCYTES % (AUTO) 20.2 %; MEAN CORPUSCULAR HGB CONC 33.4 g/dL (32.0-36.0); MEAN CORPUSCULAR VOLUME 86.6 fL (81.0-99.0); MEAN PLATELET VOLUME 9.6 fL (7.9-10.8); MONOCYTES # (AUTO) 0.7 10^3/uL (0.0-1.0); MONOCYTES % (AUTO) 8.7 %; NEUTROPHILS # (AUTO) 5.6 10^3/uL (1.5-6.6); NEUTROPHILS % (AUTO) 70.2 %; PLT - PLATELET COUNT 258 10^3/uL (130-450); RED BLOOD COUNT 4.04 10^6/uL (4.20-5.40); RED CELL DISTRIBUTION WIDTH 14.7 % (12.0-15.0)
[2020-07-30] MEDS: LACTATED RINGERS 1,000 ML IV SCH ×2 (08:55→10:57)
[2020-07-30] MEDS ORDERED: ROPIVACAINE 0.2% 200 MG/100 ML BAG EP ONE (08:57)
--- NOTE | 2020-07-30 10:09 | PROVIDER PROGRESS NOTE ---
Labor Progress Note - Uterine Monitoring Uterine Monitoring Mode: positive: External toco : 2-5 Contraction Intensity: positive: Strong Uterine Resting Tone: positive: Soft - Monitoring Monitor Mode: positive: Spiral electrode Heart Rate Baseline: 145-50 Heart Rate Variability: positive: Moderate (6-25 bmp) Accelerations: positive: Present, 15x15 Decelerations: positive: Variable, Prolonged (>2x10 min) - Vaginal Exam Dilation (in cm): 3 Effacement (%): 90% Station: -2 Cervical Position: Midposition - Labor Progress Note Labor Progress Note/Additional Text: Pt had an epidural placed. Had a prolonged deceleration of 9 min nadar 90. developed hypotension treated with fluid bolis, ephedrine and O2. scalp eletrode placed. responded. will add pitas needed.
[2020-07-30] MEDS ORDERED: diphenhydrAMINE INJ 50 MG/ML VIAL IVP PRN (10:19)
[2020-07-30] MEDS ORDERED: NALOXONE 0.4 MG/ML VIAL IVP PRN (10:19)
[2020-07-30] MEDS ORDERED: METOCLOPRAMIDE 10 MG/2 ML VIAL IVP PRN (10:19)
[2020-07-30] MEDS ORDERED: ePHEDrine 50 MG/ML VIAL IVP PRN (10:19)
[2020-07-30] MEDS ORDERED: ROPIVACAINE 0.2% 200 MG/100 ML BAG EP PRN (10:19)
[2020-07-30] MEDS ORDERED: NALBUPHINE 10 MG/ML AMP IVP PRN (10:19)
--- NOTE | 2020-07-30 10:19 | ANESTHESIA ---
Pre-Anesthesia VS, & Labs - Diagnosis Term labor, IUP - Procedure Labor epidural Vital Signs: Temp Pulse Resp BP Pulse Ox 36.8 C 91 18 149/83 H 100 07/30/20 06:15 07/30/20 06:15 07/30/20 06:15 07/30/20 06:15 07/30/20 06:15 Height 5 ft 3 in Weight (kg) 88.904 kg Body Mass Index 31.6 - NPO Last Food Intake: breakfast@0800 - Is Patient ?: Yes - Lab Results Current Lab Results: Laboratory Tests 07/30/20 07:28: Blood Type O POSITIVE, Antibody Screen NEGATIVE 07/30/20 07:28: WBC 8.0, RBC 4.04 L, Hgb 11.7 L, Hct 35.0 L, MCV 86.6, MCH 29.0, MCHC 33.4, RDW 14.7, Plt Count 258, MPV 9.6, Neut # (Auto) 5.6, Lymph # (Auto) 1.6, [place] # (Auto) 0.7, Eos # (Auto) 0.0, Baso # (Auto) 0.0, Absolute Nucleated RBC 0.00, Nucleated RBC % 0.0 Lab results reviewed: Yes Fish Bones: 07/30/20 07:28 Home Medications and Allergies Active Medications Carboprost Tromethamine (Hemabate) 250 mcg IM Q15M PRN PRN Reason: Step 4: Hemorrhage protocol Stop: 08/04/20 07:10 Fentanyl (Fentanyl) 50 mcg IVP Q1H PRN PRN Reason: PAIN Lactated Ringer's (Lr) 1,000 mls @ 150 mls/hr IV .Q6H40M JUNITO Last Admin: 07/30/20 08:55 Dose: 150 mls/hr Documented by: Oxytocin/Sodium Chloride (Pitocin/Sodium Chloride) 500 mls @ 999 mls/hr IV PRN PRN; Protocol PRN Reason: POST- HEMORR PREVENTION Stop: 08/04/20 07:10 Tranexamic Acid 1,000 mg/ (Sodium Chloride) 110 mls @ 660 mls/hr IV .ONCE PRN PRN Reason: EBL >1200mL and within 3hr Stop: 08/04/20 07:10 Lidocaine HCl (Xylocaine-Mpf 1% Vial) 30 ml ID .ONCE PRN PRN Reason: PERINEAL REPAIR Stop: 08/04/20 07:10 Methylergonovine Maleate (Methergine Inj) 0.2 mg IM .ONCE PRN PRN Reason: Step 2: Hemorrhage protocol Stop: 08/04/20 07:10 Misoprostol (Cytotec) 800 mcg BC .ONCE PRN PRN Reason: Step 3: Hemorrhage protocol Stop: 08/04/20 07:10 Ondansetron HCl (Zofran Inj) 4 mg IVP Q4H PRN PRN Reason: Nausea / Vomiting Oxytocin (Pitocin) 10 unit IM .ONCE PRN PRN Reason: Step one: If no IV access Stop: 08/04/20 07:10 Sodium Chloride (Normal Saline Flush 0.9%) 10 ml IVP PRN PRN PRN Reason: NEEDED PER PROVIDER ORDERS Sodium Chloride (Normal Saline Flush 0.9%) 10 ml IVP 0100,0900,1700 JUNITO Pnv No.103/Folic/Om3s/Fish Oil [ Gummies] 1 tab PO DAILY 12/16/19 NIFEdipine [Nifedipine ER] 60 mg PO DAILY 04/03/20 Allergies/Adverse Reactions: Allergies Allergy/AdvReac Type Severity Reaction Status Date / Time No Known Drug Allergies Allergy Verified 04/01/20 15:49 Anes History & Medical History - Anesthetic History Anesthesia Complications: reports: No previous complications Family history of Anesthesia Complications: Denies Family history of Malignant Hyperthermia: Denies - Medical History Cardiovascular: reports: Hypertension (w ) Endocrine/Autoimmune: reports: Type 2 diabetes (gestational) Smoking Status: Never smoker Psychosocial: reports: No issues indicated - Surgical History Other Past Surgical History: wisdom teeth extraction Exam General: Alert, Oriented x3, Cooperative Dental: WNL Mouth Openin Fingerbreadth Neck Mobility: Normal Mallampati classification: II Respiratory: No respiratory distress Cardiovascular: Regular rate Mental/Cognitive Status: Alert/Oriented X3, Normal for patient Cognitive Status: Within normal limits Plan Anesthesia Type: Epidural Consent for Procedure(s) Verified and Reviewed: Yes Code Status: Attempt Resuscitation ASA classification: 2-Mild systemic disease Is this case an emergency?: No
[2020-07-30 10:42] LABS: ALBUMIN 2.9 g/dL (3.2-5.5); ALBUMIN/GLOBULIN RATIO 0.8 (1.0-2.2); BILIRUBIN,TOTAL 0.5 mg/dL (0.2-1.0); CALCIUM 9.6 mg/dL (8.5-10.3); CREATININE 0.8 mg/dL (0.4-1.0); TOTAL PROTEIN 6.7 g/dL (6.7-8.2); URIC ACID 4.6 mg/dL (2.6-7.2)
[2020-07-30 11:24] LABS: CREATININE,URINE 135.2 mg/dL; PROTEIN/CREATININE RATIO,URINE 0.1 (<=0.2)
[2020-07-30 11:27] LABS: BILIRUBIN,URINE NEGATIVE (NEGATIVE); GLUCOSE, URINE (UA) NEGATIVE (NEGATIVE); KETONES,URINE (UA) NEGATIVE (NEGATIVE); LEUKOCYTE ESTERASE, URINE NEGATIVE (NEGATIVE); NITRITE,URINE NEGATIVE (NEGATIVE); OCCULT BLOOD,URINE TRACE-INTA (NEGATIVE); PROTEIN,URINE NEGATIVE (NEGATIVE); UROBILINOGEN,URINE 0.2 (NORMAL) E.U./dL (NORMAL)
[2020-07-30 11:42] LABS: CLARITY,URINE CLEAR (CLEAR)
[2020-07-30 11:48] LABS: BACTERIA,URINE Moderate /HPF (None Seen); MUCUS,URINE Marked Strands; RBC,URINE 0-5 /HPF (0-5); SQUAMOUS EPITHELIAL CELL,UR MANY Squamous (<= Few)
--- NOTE | 2020-07-30 12:06 | PROVIDER PROGRESS NOTE ---
Labor Progress Note - Uterine Monitoring Uterine Monitoring Mode: positive: External toco Contraction Frequency (min/apart): 2-4 Contraction Intensity: positive: Moderate to strong Uterine Resting Tone: positive: Soft - Monitoring Monitor Mode: positive: Spiral electrode Heart Rate Baseline: 155 Heart Rate Variability: positive: Moderate (6-25 bmp) Accelerations: positive: Present, 15x15 Decelerations: positive: Variable Strip Review: positive: Category I - Vaginal Exam Dilation (in cm): 3 Effacement (%): 90% Station: -2 Cervical Position: Midposition - Labor Progress Note Labor Progress Note/Additional Text: Base line improving. P/C 0.1. Pt developed rectal pressure. therefore pelvic exam. Pt needed fluid bolis 700 ml urine out put 250 ml.
--- NOTE | 2020-07-30 15:02 | PROVIDER PROGRESS NOTE ---
Labor Progress Note - Uterine Monitoring Uterine Monitoring Mode: positive: External toco Contraction Frequency (min/apart): 3-4 Contraction Intensity: positive: Moderate to strong Uterine Resting Tone: positive: Soft - Monitoring Heart Rate Baseline: 155 Heart Rate Variability: positive: Moderate (6-25 bmp) Accelerations: positive: Present, 15x15 Strip Review: positive: Category I - Vaginal Exam Dilation (in cm): 3+ Effacement (%): 90 Station: -1 Cervical Position: Midposition - Labor Progress Note Labor Progress Note/Additional Text: excellent urine output. BP130/70's will change to D5 LR 125
[2020-07-30] MEDS: CALCIUM CARBONATE CHEW 500 MG TABLET PO PRN ×2 (15:27→18:29)
[2020-07-30] MEDS: DEXTROSE 5%-LACTATED RINGERS 1,000 ML IV SCH ×2 (15:28→23:24)
[2020-07-30] MEDS ORDERED: OXYTOCIN/SODIUM CHLORIDE 500 ML IV SCH (16:00)
[2020-07-30] MEDS: ACETAMINOPHEN 500 MG TABLET PO PRN (16:50)
--- NOTE | 2020-07-30 18:55 | CONSULTATION NOTE ---
Consultation Report: Called to evaluate patient for increased pain with contractions and asymetric sensory deficit. Patient evaluated with cold sensation, found with t6 level on right and t12 on left. Epidural bolused with 8ml 0.25%bupivicaine via syringe, and infusion settings changed to 10ml/hr continuous with 6 ml PCEA bolus q20 min. Will continue to follow.
--- NOTE | 2020-07-30 21:35 | PROVIDER PROGRESS NOTE ---
Labor Progress Note - Uterine Monitoring Uterine Monitoring Mode: positive: IUPC Contraction Frequency (min/apart): 3 Contraction Intensity: positive: Moderate to strong Uterine Resting Tone: positive: Soft - Monitoring Monitor Mode: positive: Spiral electrode Heart Rate Baseline: 140 Heart Rate Variability: positive: Moderate (6-25 bmp) Accelerations: positive: Absent Decelerations: positive: None - Vaginal Exam Dilation (in cm): 5 Effacement (%): 100% Station: -1 Cervical Position: Midposition - Labor Progress Note Labor Progress Note/Additional Text: difficulty with pain control. Pt raised the possibility of C/S I explained the risks and benefits. bleeding infection injury to the pelvic organs. DVT with PE. Post op adhesions. MVU at 160/10 mins. recommended work with Epidural and increase pitocin. Pt and spouse to discuss.
[2020-07-30] MEDS ORDERED: CITRIC ACID/SODIUM CITRATE 15 ML UDC PO ONE (21:53)
--- NOTE | 2020-07-30 23:21 | PROVIDER PROGRESS NOTE ---
Labor Progress Note - Uterine Monitoring Uterine Monitoring Mode: positive: IUPC Contraction Frequency (min/apart): 2-3 Contraction Intensity: positive: Moderate to strong - Monitoring Monitor Mode: positive: Spiral electrode Heart Rate Baseline: 135 Heart Rate Variability: positive: Moderate (6-25 bmp) Accelerations: positive: Present, 15x15 Decelerations: positive: Early (down to 90) Strip Review: positive: Category II - Vaginal Exam Dilation (in cm): 6 Effacement (%): 100 Station: 1 Cervical Position: Midposition - Labor Progress Note Labor Progress Note/Additional Text: 1 cm progress in 1 hour. Deep early decelerations. continue to monitor
[2020-07-31] MEDS ORDERED: SODIUM CHLORIDE 0.9% 0 ML IV ONE (00:57)
[2020-07-31] MEDS ORDERED: fentaNYL 100 MCG/2 ML VIAL IVP ONE (01:40)
[2020-07-31] MEDS ORDERED: ceFAZolin 3 GM in SODIUM CHLORIDE 0.9% 100ML 100 ML IV ONE (02:16)
[2020-07-31] MEDS ORDERED: diphenhydrAMINE 25 MG CAPSULE PO PRN (02:17)
[2020-07-31] MEDS ORDERED: WITCH HAZEL/GLYCERIN 1 PAD TOP PRN (02:17)
[2020-07-31] MEDS ORDERED: HYDROCORTISONE 1% CREAM 28 GM TUBE PR PRN (02:17)
--- NOTE | 2020-07-31 02:51 | DELIVERY NOTE ---
Delivery Note - Labor Labor: positive: Spontaneous, Augmented by oxytocin - Delivery Method Infant Delivery Method: positive: Spontaneous vaginal delivery - Presentation Presentation: positive: Vertex, LISA - left occiput anterior - Nuchal Cord Nuchal Cord: positive: Present (times one) - Anesthetic Anesthetic Type: Anesthetic: positive: Lidocaine - 1% plain - Amniotic Fluid Description Amniotic Fluid Description: positive: Clear - Episiotomy Type Episiotomy Type: positive: None - Laceration Laceration: positive: 2nd degree - Suture Suture Type: positive: Vicryl Suture Size: positive: 3-0 - Delivery Outcome Delivery Outcome: positive: Livebirth (Apgars 9/9) - [place] : positive: Placed in direct skin contact with mother, Bulb syringe, Stimulated, Charlotte used [place] sex: positive: Male - Placenta Placenta: positive: Manual removal, Retained - Estimated Blood Loss Estimated Blood Loss (in cc): 400 - Post Delivery Events Post Delivery Events: positive: Retained placenta - Delivery Comments (Free Text/Narrative) Delivery Comments (Free Text/Narrative): Pt presented at 0300 with contractions. SROM at 0630. Epidural placed at 0858 secondary to sever contraction pain. baby developed mery cardia secondary to hypotension. administered ephedrine and fluid bolds. Contractions augmented with Pitocin. because of slow progress IUPC placed. low MVU and pit pushed. reached complete at 0100 Delivered 0128 live male Apgars 9/9 6lb 15 oz. placenta had cord evolsed. fentanyl 100 micrograms and epidural reactivated. Placenta manualy removed at 0146. inspected and intact. repare of 2 degree . EBL 400 ml
[2020-07-31] MEDS ORDERED: LACTATED RINGERS 1,000 ML IV SCH (03:00)
[2020-07-31] MEDS ORDERED: LABETALOL 20 MG/4 ML SYRINGE IVP ONE (04:12)
[2020-07-31] MEDS: SODIUM CHLORIDE FLUSH 0.9% 10 ML SYRINGE IVP SCH ×2 (04:15→04:36)
[2020-07-31] MEDS: ACETAMINOPHEN 500 MG TABLET PO PRN ×3 (04:29→22:17)
[2020-07-31] MEDS: oxyCODONE 5 MG TABLET PO PRN ×2 (04:29→22:16)
[2020-07-31] MEDS ORDERED: LABETALOL 100 MG TABLET PO ONE (05:00)
[2020-07-31 06:24] LABS: BASOPHILS % (AUTO) 0.3 %; EOSINOPHILS % (AUTO) 0.2 %; HGB - HEMOGLOBIN 9.3 g/dL (12.0-16.0); LYMPHOCYTES % (AUTO) 6.9 %; MEAN CORPUSCULAR HEMOGLOBIN 29.5 pg (27.0-31.0); MEAN CORPUSCULAR HGB CONC 31.5 g/dL (32.0-36.0); MEAN CORPUSCULAR VOLUME 93.7 fL (81.0-99.0); MEAN PLATELET VOLUME 9.9 fL (7.9-10.8); NEUTROPHILS # (AUTO) 12.5 10^3/uL (1.5-6.6); PLT - PLATELET COUNT 217 10^3/uL (130-450); RED BLOOD COUNT 3.15 10^6/uL (4.20-5.40); RED CELL DISTRIBUTION WIDTH 15.4 % (12.0-15.0); WHITE BLOOD COUNT 14.7 x10^3/uL (4.8-10.8)
[2020-07-31 06:48] LABS: ALBUMIN 2.3 g/dL (3.2-5.5); ALBUMIN/GLOBULIN RATIO 0.7 (1.0-2.2); BILIRUBIN,TOTAL 0.6 mg/dL (0.2-1.0); CALCIUM 8.9 mg/dL (8.5-10.3); CREATININE 0.8 mg/dL (0.4-1.0); TOTAL PROTEIN 5.6 g/dL (6.7-8.2); URIC ACID 5.5 mg/dL (2.6-7.2)
--- NOTE | 2020-07-31 08:30 | PREOP HISTORY & PHYSICAL ---
DATE OF SERVICE: 07/30/2020 Physician: Yomi Whitfield MD IDENTIFICATION: Patient is a 25-year-old, G1, P0. Her EDC is 08/09/2020. She is 38 weeks and 3 days. CHIEF COMPLAINT: Labor. HISTORY OF PRESENT ILLNESS: Patient developed contractions on the evening of 07/29/2020. She presented to Labor and Delivery at 3:30 complaining of contractions about every 3 minutes. Her cervical showed her to be 3/80%/-2, and vertex. She was observed and at 6:30 spontaneously ruptured her membranes. She has continued to have strong uterine contractions, which were very painful. Her amniotic fluid upon examination showed some meconium. Her OB care started at [facility] and transferred to us at 25 weeks. Her is positive for having gestational diabetes. She started her blood sugar tests and with diet was able to control her blood sugars quite well. Her fastings were in the 80s-90s, two hours were noted to be all less than 120. For this reason, she was changed to checking her blood sugars every 3 days. Her history is positive for some hypertension. The patient is group B strep negative. PAST MEDICAL HISTORY: Chronic hypertension. SURGICAL HISTORY: [place] teeth. SOCIAL HISTORY: Patient is [employer]. She is to an active duty [employer]. She denies use of alcohol, tobacco, or street or addictive drugs. FAMILY HISTORY: Positive for breast cancer, heart disease, diabetes, as well as hypertension. REVIEW OF SYSTEMS: The patient has had some difficulty with headaches earlier in her . As a matter of fact, on 07/28/2020, she was seen in Labor and Delivery for headache. Her entire preeclampsia labs were negative, as well as her blood pressure being normal. PHYSICAL EXAMINATION GENERAL: A well-developed, well-nourished, black female complaining of intermittent contractions, which are very strong. VITAL SIGNS: Her blood pressure upon arrival was 152/82. However, her followup blood pressure half an hour later is 136/86. HEENT: Pupils are equal, round, extraocular muscles intact. Thyroid is not palpably enlarged. HEART: Regular rate and rhythm without murmurs. LUNGS: Lung rios are clear without rales or wheezes. ABDOMEN: Gravid measuring 38 cm. PELVIC: Cervical examination showed her to be 2 cm/80% effaced/-2 vertex posterior cervix. There is evidence of meconium on the glove. EXTREMITIES: Her DTRs are 2+ and symmetrical. LABORATORIES: Patient is O positive. She is rubella immune. Her STI check was all negative. Her 50 gram Glucola was noted to be elevated. She is group B strep negative, Staphylococcus A positive. IMPRESSION: A 25-year-old primipara in active labor with spontaneous ruptured membranes. She is group B strep negative. She has a history of gestational diabetes, as well as chronic hypertension, which has been normal throughout her . PLAN: We will obtain preeclampsia labs. We will have an epidural placed for labor analgesia. We will do dexi-sticks to monitor blood sugars. Anticipate vaginal delivery. TD: 07/30/2020 09:27 PAUL
--- NOTE | 2020-07-31 11:29 | PROVIDER PROGRESS NOTE ---
Subjective - Prog Note Date Prog Note Date: 07/31/20 Prog Note Time: 11:27 - Subjective Pt reports feeling: Improved (Pain 01/25. no FRANCIS. good pain control. voiding.) Objective - Vital Signs/Intake & Output Reviewed Vital Signs: Yes Vital Signs: Vital Signs x48h Temp Pulse Resp BP Pulse Ox 07/31/20 08:00 36.9 C 93 18 131/69 H 98 Intake & Output: Intake & Output 07/28/20 07/29/20 07/30/20 07/31/20 23:59 23:59 23:59 23:59 Intake Total 2312.567 520.833 Output Total 1855 950 Balance 457.567 -429.167 - Objective General Appearance: positive: No acute distress, Alert Abdomen: positive: Non-tender, Mass (U-0 uterus is mildly tender) Reflexes: Knee (R): 0 (trace DTR no clonus), Knee (L): 0 (trace DTR no clonus) - Lab Results Fish Bones: 07/31/20 06:05 07/31/20 06:05 Other Labs: Lab Results x24hrs 07/31/20 07/31/20 07/31/20 Range/Units 07:45 06:05 06:05 WBC 14.7 H (4.8-10.8) x10^3/uL RBC 3.15 L (4.20-5.40) 10^6/uL Hgb 9.3 L (12.0-16.0) g/dL Hct 29.5 L (37.0-47.0) % MCV 93.7 (81.0-99.0) fL MCH 29.5 (27.0-31.0) pg MCHC 31.5 L (32.0-36.0) g/dL RDW 15.4 H (12.0-15.0) % Plt Count 217 (130-450) 10^3/uL MPV 9.9 (7.9-10.8) fL Neut # (Auto) 12.5 H (1.5-6.6) 10^3/uL Lymph # (Auto) 1.0 L (1.5-3.5) 10^3/uL Beckham # (Auto) 1.0 (0.0-1.0) 10^3/uL Eos # (Auto) 0.0 (0.0-0.7) 10^3/uL Baso # (Auto) 0.0 (0.0-0.1) 10^3/uL Absolute Nucleated RBC 0.00 x10^3/uL Nucleated RBC % 0.0 /100WBC Sodium 137 (135-145) mmol/L Potassium 3.6 (3.5-5.0) mmol/L Chloride 109 (101-111) mmol/L Carbon Dioxide 18 L (21-32) mmol/L Anion Gap 10.0 (6-13) BUN 6 (6-20) mg/dL Creatinine 0.8 (0.4-1.0) mg/dL Estimated GFR (MDRD) 104 (>89) Glucose 148 H (70-100) mg/dL POC Whole Bld Glucose 125 H (70 - 100) mg/dL Uric Acid 5.5 (2.6-7.2) mg/dL Calcium 8.9 (8.5-10.3) mg/dL Total Bilirubin 0.6 (0.2-1.0) mg/dL AST 23 (10-42) IU/L ALT 10 (10-60) IU/L Alkaline Phosphatase 170 H (42-121) IU/L Total Protein 5.6 L (6.7-8.2) g/dL Albumin 2.3 L (3.2-5.5) g/dL Globulin 3.3 (2.1-4.2) g/dL Albumin/Globulin Ratio 0.7 L (1.0-2.2) Urine Color Urine Clarity (CLEAR) Urine pH (5.0-7.5) PH Ur Specific Joseph (1.002-1.030) Urine Protein (NEGATIVE) mg/dL Urine Glucose (UA) (NEGATIVE) mg/dL Urine Ketones (NEGATIVE) mg/dL Urine Occult Blood (NEGATIVE) Urine Nitrite (NEGATIVE) Urine Bilirubin (NEGATIVE) Urine Urobilinogen (NORMAL) E.U./dL Ur Leukocyte Esterase (NEGATIVE) Urine RBC (0-5) /HPF Urine WBC (0-5) /HPF Ur Squamous Epith Cells (<= Few) Urine Bacteria (None Seen) /HPF Urine Mucus Urine Culture Comments 07/30/20 07/30/20 07/30/20 Range/Units 18:32 14:35 12:10 WBC (4.8-10.8) x10^3/uL RBC (4.20-5.40) 10^6/uL Hgb (12.0-16.0) g/dL Hct (37.0-47.0) % MCV (81.0-99.0) fL MCH (27.0-31.0) pg MCHC (32.0-36.0) g/dL RDW (12.0-15.0) % Plt Count (130-450) 10^3/uL MPV (7.9-10.8) fL Neut # (Auto) (1.5-6.6) 10^3/uL Lymph # (Auto) (1.5-3.5) 10^3/uL Beckham # (Auto) (0.0-1.0) 10^3/uL Eos # (Auto) (0.0-0.7) 10^3/uL Baso # (Auto) (0.0-0.1) 10^3/uL Absolute Nucleated RBC x10^3/uL Nucleated RBC % /100WBC Sodium (135-145) mmol/L Potassium (3.5-5.0) mmol/L Chloride (101-111) mmol/L Carbon Dioxide (21-32) mmol/L Anion Gap (6-13) BUN (6-20) mg/dL Creatinine (0.4-1.0) mg/dL Estimated GFR (MDRD) (>89) Glucose (70-100) mg/dL POC Whole Bld Glucose 96 85 87 (70 - 100) mg/dL Uric Acid (2.6-7.2) mg/dL Calcium (8.5-10.3) mg/dL Total Bilirubin (0.2-1.0) mg/dL AST (10-42) IU/L ALT (10-60) IU/L Alkaline Phosphatase (42-121) IU/L Total Protein (6.7-8.2) g/dL Albumin (3.2-5.5) g/dL Globulin (2.1-4.2) g/dL Albumin/Globulin Ratio (1.0-2.2) Urine Color Urine Clarity (CLEAR) Urine pH (5.0-7.5) PH Ur Specific Joseph (1.002-1.030) Urine Protein (NEGATIVE) mg/dL Urine Glucose (UA) (NEGATIVE) mg/dL Urine Ketones (NEGATIVE) mg/dL Urine Occult Blood (NEGATIVE) Urine Nitrite (NEGATIVE) Urine Bilirubin (NEGATIVE) Urine Urobilinogen (NORMAL) E.U./dL Ur Leukocyte Esterase (NEGATIVE) Urine RBC (0-5) /HPF Urine WBC (0-5) /HPF Ur Squamous Epith Cells (<= Few) Urine Bacteria (None Seen) /HPF Urine Mucus Urine Culture Comments 07/30/20 Range/Units 10:15 WBC (4.8-10.8) x10^3/uL RBC (4.20-5.40) 10^6/uL Hgb (12.0-16.0) g/dL Hct (37.0-47.0) % MCV (81.0-99.0) fL MCH (27.0-31.0) pg MCHC (32.0-36.0) g/dL RDW (12.0-15.0) % Plt Count (130-450) 10^3/uL MPV (7.9-10.8) fL Neut # (Auto) (1.5-6.6) 10^3/uL Lymph # (Auto) (1.5-3.5) 10^3/uL Beckham # (Auto) (0.0-1.0) 10^3/uL Eos # (Auto) (0.0-0.7) 10^3/uL Baso # (Auto) (0.0-0.1) 10^3/uL Absolute Nucleated RBC x10^3/uL Nucleated RBC % /100WBC Sodium (135-145) mmol/L Potassium (3.5-5.0) mmol/L Chloride (101-111) mmol/L Carbon Dioxide (21-32) mmol/L Anion Gap (6-13) BUN (6-20) mg/dL Creatinine (0.4-1.0) mg/dL Estimated GFR (MDRD) (>89) Glucose (70-100) mg/dL POC Whole Bld Glucose (70 - 100) mg/dL Uric Acid (2.6-7.2) mg/dL Calcium (8.5-10.3) mg/dL Total Bilirubin (0.2-1.0) mg/dL AST (10-42) IU/L ALT (10-60) IU/L Alkaline Phosphatase (42-121) IU/L Total Protein (6.7-8.2) g/dL Albumin (3.2-5.5) g/dL Globulin (2.1-4.2) g/dL Albumin/Globulin Ratio (1.0-2.2) Urine Color YELLOW Urine Clarity CLEAR (CLEAR) Urine pH 7.0 (5.0-7.5) PH Ur Specific Joseph 1.025 (1.002-1.030) Urine Protein NEGATIVE (NEGATIVE) mg/dL Urine Glucose (UA) NEGATIVE (NEGATIVE) mg/dL Urine Ketones NEGATIVE (NEGATIVE) mg/dL Urine Occult Blood TRACE-INTA (NEGATIVE) Urine Nitrite NEGATIVE (NEGATIVE) Urine Bilirubin NEGATIVE (NEGATIVE) Urine Urobilinogen 0.2 (NORMAL) (NORMAL) E.U./dL Ur Leukocyte Esterase NEGATIVE (NEGATIVE) Urine RBC 0-5 (0-5) /HPF Urine WBC 0-3 (0-5) /HPF Ur Squamous Epith Cells MANY Squamous H (<= Few) Urine Bacteria Moderate H (None Seen) /HPF Urine Mucus Marked Strands Urine Culture Comments NOT INDICATED Assessment/Plan - Problem List (1) (spontaneous vaginal delivery) Impression: Blood pressure 170[place]olis last night. given 10 mg labetolol followed with 100 mg po tid. excellent result.
[2020-07-31] MEDS: LABETALOL 100 MG TABLET PO SCH ×2 (13:10→20:38)
[2020-07-31 16:12] LABS: CREATININE,URINE 46.6 mg/dL
[2020-07-31 16:17] LABS: TOTAL PROTEIN,URINE TIMED < 6 mg/dL
[2020-08-01] MEDS: SIMETHICONE CHEW 80 MG TABLET PO SCH ×3 (01:45→16:50)
[2020-08-01] MEDS: ACETAMINOPHEN 500 MG TABLET PO PRN ×3 (07:49→22:30)
[2020-08-01] MEDS: LABETALOL 100 MG TABLET PO SCH ×3 (07:49→16:50)
[2020-08-01] MEDS: oxyCODONE 5 MG TABLET PO PRN ×3 (07:54→22:29)
--- NOTE | 2020-08-01 08:12 | PROVIDER PROGRESS NOTE ---
Subjective - Prog Note Date Prog Note Date: 08/01/20 Prog Note Time: 08:09 - Subjective Pt reports feeling: Improved (Pain 4/10, uterine tenderness improving. breast feeding.) Objective - Vital Signs/Intake & Output Reviewed Vital Signs: Yes Vital Signs: Vital Signs x48h Temp Pulse Resp BP Pulse Ox 08/01/20 07:45 36.7 C 88 18 136/70 H 100 08/01/20 05:40 36.6 C 78 16 129/59 L 99 08/01/20 01:00 36.8 C 75 18 140/67 H 99 Intake & Output: Intake & Output 07/29/20 07/30/20 07/31/20 08/01/20 23:59 23:59 23:59 23:59 Intake Total 2312.567 520.833 600 Output Total 1855 950 Balance 457.567 -429.167 600 - Objective General Appearance: positive: No acute distress, Alert Abdomen: positive: Mass (U-2 mild tenderness) Skin: positive: Color nml, No rash, Warm, Dry Extremities: negative: Calf tenderness, Shannen's sign/cords Reflexes: Knee (R): 1+, Knee (L): 1+ - Lab Results Fish Bones: 07/31/20 06:05 07/31/20 06:05 Other Labs: Lab Results x24hrs 07/31/20 Range/Units 15:35 Urine Creatinine 46.6 mg/dL Ur Total Protein Timed < 6 mg/dL Protein/Creatinin Ratio Not Reportable Assessment/Plan - Problem List (1) (spontaneous vaginal delivery) Impression: recovering well. watch uterine tenderness as she had a manual removal of the placenta.
[2020-08-02] MEDS: LABETALOL 100 MG TABLET PO SCH ×2 (00:26→08:36)
[2020-08-02] MEDS: ACETAMINOPHEN 500 MG TABLET PO PRN (10:41)
[2020-08-02 10:55] LABS: CREATININE,URINE 39.5 mg/dL; PROTEIN/CREATININE RATIO,URINE 0.5 (<=0.2)
[2020-08-02] MEDS ORDERED: LIDOCAINE JELLY 2% 30 ML TUBE TOP SCH (11:15)
[2020-08-02 11:59] VITALS: BP 137/59
[2020-08-02 12:06] LABS: BILIRUBIN,URINE NEGATIVE (NEGATIVE); GLUCOSE, URINE (UA) NEGATIVE (NEGATIVE); KETONES,URINE (UA) NEGATIVE (NEGATIVE); LEUKOCYTE ESTERASE, URINE NEGATIVE (NEGATIVE); NITRITE,URINE NEGATIVE (NEGATIVE); OCCULT BLOOD,URINE SMALL (NEGATIVE); PROTEIN,URINE NEGATIVE (NEGATIVE); UROBILINOGEN,URINE 0.2 (NORMAL) E.U./dL (NORMAL)
[2020-08-02 12:07] LABS: CLARITY,URINE CLEAR (CLEAR)
[2020-08-02 12:14] LABS: BACTERIA,URINE None Seen /HPF (None Seen); RBC,URINE 0-5 /HPF (0-5); SQUAMOUS EPITHELIAL CELL,UR MOD Squamous (<= Few)
[2020-08-02 12:41] LABS: CREATININE,URINE 69.3 mg/dL
[2020-08-02 12:48] LABS: TOTAL PROTEIN,URINE TIMED < 6 mg/dL
--- NOTE | 2020-08-02 14:48 | Labor Flowsheet ---
Labor Flowsheet Datetime Report Generated by CPN: 08/02/2020 14:48 Datetime: 08/02/2020 11:40 VITAL SIGNS NBP Sys/Liz/Mean (mmHg): 137 : 59 : 76 Pulse: 79 Datetime: 08/01/2020 16:25 SpO2 (%): 99 Datetime: 07/31/2020 03:00 PAIN Pain Scale: 2 Datetime: 07/31/2020 02:15 Epidural Procedure Other: Cath Removed; Cath Intact (Annotations: pump stopped and epidural catheter removed intact) Datetime: 07/31/2020 01:50 Analgesics/Sedatives: Fentanyl (mcg) @ (Annotations: 100mcg for placental extraction. ) Datetime: 07/31/2020 01:46 STAGE 2 Stage 2 Comments: delivery of placenta with manual removal. see provider documentation of removal. Datetime: 07/31/2020 01:42 Anesthesia Comments: anesthesia provider remains on labor deck until delivery of placenta and deliv ers epidural bolus prior to manual removal of placenta. 100mcg IV fentanyl administered per MD order s. Datetime: 07/31/2020 01:30 Stage of : Recovery Datetime: 07/31/2020 01:28 UTERINE ACTIVITY Monitor Mode: Internal Quality: Strong Duration (sec): Pt pushes to delivery with active coaching by provider and nursing staff. Contraction Comments: Patient pushes to delivery with active coaching ASSESSMENT A Monitor Mode: Internal Scalp Electrode (Annotations: to EFM once FSE was disconnected by provider) FHR Baseline Rate : FHT dopple 165-60's Variability: Moderate 6-25 bpm Decelerations: Variable Vaginal Exam Comments: delivery of viable male apgars 9 _9 Datetime: 07/31/2020 01:15 Frequency (min): 2-3 Pattern: Normal: <= 5 Contractions in 10 Minutes Resting Tone (Palpate): Relaxed Resting Tone IUP (mmHg): 30 Intensity IUP (mmHg): 20-40 [place] Units (mmHg): 130 Accelerations: 15X15 Category: Category II Datetime: 07/31/2020 01:10 VAGINAL EXAM Dilatation (cm): 10.0 Datetime: 07/31/2020 01:01 Station: 2 Exam by: Chester Spears, RNC LaborFlag: Labor Datetime: 07/31/2020 01:00 Patient Care Comments: approximated time: double cut sawyer called for delivery re: meconium stained amn iotic fluid. Datetime: 07/31/2020 00:46 Temperature (C): 37.2 Datetime: 07/31/2020 00:44 Communication Comments: provider agrees to team plan of care as per to initiate amnioinfusion. once RN to bedside and performs cervical exam, it became evident that patient was nearing delivery. Datetime: 07/31/2020 00:03 MEDICATIONS Pitocin (milliunits): Increased to @ (Annotations: 13) Datetime: 07/30/2020 23:08 Effacement (%): 100 Cervix, Consistency: Soft Cervix, Position: Anterior Datetime: 07/30/2020 23:00 Actions for Decelerations: Side to Side Datetime: 07/30/2020 21:59 Medication Comments: 15cc bicitra given Datetime: 07/30/2020 21:20 Comments: end of tracing from #[id number] to #[id number] Datetime: 07/30/2020 21:08 Anesthesia Level Check: T10- Umbilicus Datetime: 07/30/2020 21:02 Monitor Interventions for UA: IUPC Inserted Datetime: 07/30/2020 21:00 FHR Baseline Changes: Return to Previous Baseline Datetime: 07/30/2020 19:38 Respirations: 16 Datetime: 07/30/2020 19:10 COMMUNICATION Communication: Report Given to @ K. Burckhardt, RNC Datetime: 07/30/2020 18:21 Patient Position/Activity: Left Tilt Datetime: 07/30/2020 18:14 Provider Notified (Name): Dr. Cheatham Datetime: 07/30/2020 17:36 Pain Presence: Intermittent Pain Type: Contraction Pain Location: Abdomen Pain Assessment Comments: feeling ctx on left side from upper abd to lower abd. Repositioned on L s ye. Datetime: 07/30/2020 17:30 Temperature Route: Oral Datetime: 07/30/2020 16:50 Pain Relief Measures: Pain Medication Given Datetime: 07/30/2020 16:39 Notification Reason: Patient Request Datetime: 07/30/2020 15:28 PATIENT CARE IV/Blood Work: New IV Bag Hung; IV Bag Number @ 3 Datetime: 07/30/2020 15:27 Antiemetics/Antacids: Other Antiemetic/Antacid @ TUMS 1000mg Datetime: 07/30/2020 15:12 Pitocin Checklist: At Least 1 Acceleration of 15 bpm x 15 Seconds in 30 Minutes or Adequate Variabi lity; No More than 1 Late Deceleration Occurred in Past 30 Minutes; No More than 2 Variable Decelerat ions > 60 Seconds in Duration and decreasing >60 bpm in 30 minutes; No More than 5 Uterine Contractio ns in 10 Minutes for any 20 Minute Interval; Uterus Palpates Soft between Contractions Datetime: 07/30/2020 14:53 Vaginal Bleeding: Normal Show Datetime: 07/30/2020 10:16 I/O Interventions: [place] Cath Inserted Datetime: 07/30/2020 09:57 Oxygen Amount (LPM): 10 Datetime: 07/30/2020 09:41 Epidural Procedure: Loading Dose Datetime: 07/30/2020 09:30 Monitor Interventions for FHR: Ultrasound Adjusted Datetime: 07/30/2020 08:58 PROCEDURE TIME OUT Procedure Verify: Correct Patient Identity; Accurate Procedure Consent Form; Agreement on Procedure to be Done; Correct Patient Position ANESTHESIA Anesthesia Plans: Epidural Epidural Positioning: Sitting
[2020-08-02] MEDS ORDERED: LIDOCAINE JELLY 2% 5 ML TUBE TOP SCH (21:00)
--- NOTE | 2020-08-10 16:13 | DISCHARGE SUMMARY ---
Physician: Yomi Whitfield MD DATE OF ADMISSION: 07/29/2020 DATE OF DISCHARGE: 08/01/2020 ADMITTING DIAGNOSES 1. A 25-year-old, G1, P0, 38 weeks 3 days, EDC 08/09/2020. 2. Active labor. 3. Spontaneous rupture of membranes. 4. Gestational diabetes mellitus, good control. 5. Chronic hypertension, good control. DISCHARGE DIAGNOSES 1. A 25-year-old, G1, P0, 38 weeks 3 days, EDC 08/09/2020. 2. Active labor. 3. Spontaneous rupture of membranes. 4. Gestational diabetes mellitus, good control. 5. Chronic hypertension, good control. 6. Spontaneous vaginal delivery, live male infant. 7. Retained placenta. PROCEDURES 1. Pitocin augmentation. 2. Epidural. 3. Intrauterine pressure catheter. 4. Spontaneous vaginal delivery. 5. Manual removal of placenta. PRESENTING HISTORY: Patient is a 25-year-old primigravida whose due date was 08/09/2020. At 38 week s and 3 days, she had spontaneous rupture of membranes and presented to labor and delivery on the sabrina alexi of the 07/29/2020. She complained of contractions starting at 3:30, about every 3 minutes. Her initial examination showed her to be 3, 80% and vertex. She was observed and at 6:30, she had spo ntaneous rupture of membranes. She continued to have strong contractions, which were very painful. Her amniotic fluid showed to have some meconium. Patient had her OB care initially at [facility], but bishop sferred at 25 weeks' gestational age. Her course was positive for having gestational diabetes, at ich time she was well controlled on diet alone. Her fastings run in the 80s-90s, 2-hour postprandial s were all less than 120. She had a history of some hypertension, but did not exhibit this during he r . Her STI check was negative. She is noted to be group B strep negative. 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 On admission, her cervix w as 3, 80% and -2. LABORATORIES: A CBC on admission showed a white count of 8.0. Postoperatively, it renuka to 14.8. Her hemoglobin was 11.7 and fell to 9.3. Platelets were initially 258 and fell to 217. Her chemistries were essentially normal. Her creatinine was 0.8. Her AST and ALT were both noted to be normal. Her blood sugars were all within normal limits, with the exception of a postprandial at 125. Protein:cr eatinine ratio was noted to be 0.1 initially, was repeated and was 0.5; however, this was felt second patrick to being contaminated. When done with a cath specimen, it was noted to be negative. HOSPITAL COURSE: Patient was observed and then admitted secondary to spontaneous rupture of membrane s at 0630. Epidural was placed at 0858, because of the severe pain with contractions; however, she d eveloped hypotension, which had to be treated with IV fluid challenge, as well as ephedrine. Her con tractions were augmented with Pitocin, but because of slow progress, an IUPC was placed. She was not ed to have a low MVUs; however, she did reach complete at 0100 the following morning. Following a 28 -minute second stage, she delivered a live male , Apgars 9 and 9, weighing 6 pounds 15 ounces. At time of delivery, a part side of the cord avulsed from the placenta and so the uterus had to be r emoved manually. She received 100 mcg of fentanyl, as well as her epidural was reactivated. Her EBL was estimated at 400 mL. Her course was unremarkable. She recovered well. She was given prophylactic antibiotics after her manual exploration. She was discharged to home on 08/01/2020. S he did not require any discharge medications. She was instructed to follow up in the clinic in 1 shay jarrett TD: 08/10/2020 11:26
== END 2020-08-02 14:38 | disposition home or self-care (01) | DRG 806 ==
LOC: WFO 03:25 → FBP 03:26 → WFO 06:29 → FBP 06:30
PROVIDERS: ADMIT Obstetrics & Gynecology; ATTEND Obstetrics & Gynecology
PROC: 10H07YZ Insertion of Other Device into Products of Conception, Via Natural or Artificial Opening (ICD-10-PCS; 2020-07-30)
PROC: 10E0XZZ Delivery of Products of Conception, External Approach (ICD-10-PCS; principal; 2020-07-31)
PROC: 10D17Z9 Manual Extraction of Products of Conception, Retained, Via Natural or Artificial Opening (ICD-10-PCS; 2020-07-31)
PROC: 0KQM0ZZ Repair Perineum Muscle, Open Approach (ICD-10-PCS; 2020-07-31)
DX: O24.420 Gestational diabetes mellitus in childbirth, diet controlled (principal); O10.92 Unspecified pre-existing hypertension complicating childbirth; Z37.0 Single live birth; Z3A.38 38 weeks gestation of pregnancy; O69.89X0 Labor and delivery complicated by other cord complications, not applicable or unspecified; O73.0 Retained placenta without hemorrhage; O74.6 Other complications of spinal and epidural anesthesia during labor and delivery; I95.9 Hypotension, unspecified; O76 Abnormality in fetal heart rate and rhythm complicating labor and delivery; O77.0 Labor and delivery complicated by meconium in amniotic fluid; O69.81X0 Labor and delivery complicated by cord around neck, without compression, not applicable or unspecified; O70.1 Second degree perineal laceration during delivery
CPT/HCPCS: 36415; 80053; 81001; 82570; 84112; 84156; 84550; 85025; 86850; 86900; 86901; 88309; 99211; A9270; J3490; J7120; 59025; 81003; 87086

== ENCOUNTER 2020-08-03 11:47 | Outpatient (CLI) | payer OTHER ==
[2020-08-03 13:24] VITALS: BP 129/79
--- NOTE | 2020-08-03 13:28 | Labor Flowsheet ---
Labor Flowsheet Datetime Report Generated by CPN: 08/03/2020 13:28 Datetime: 08/02/2020 11:40 VITAL SIGNS NBP Sys/Liz/Mean (mmHg): 137 : 59 : 76 Pulse: 79 Datetime: 08/01/2020 16:25 SpO2 (%): 99 Datetime: 07/31/2020 03:00 PAIN Pain Scale: 2 Datetime: 07/31/2020 02:15 Epidural Procedure Other: Cath Removed; Cath Intact (Annotations: pump stopped and epidural catheter removed intact) Datetime: 07/31/2020 01:50 Analgesics/Sedatives: Fentanyl (mcg) @ (Annotations: 100mcg for placental extraction. ) Datetime: 07/31/2020 01:46 STAGE 2 Stage 2 Comments: delivery of placenta with manual removal. see provider documentation of removal. Datetime: 07/31/2020 01:42 Anesthesia Comments: anesthesia provider remains on labor deck until delivery of placenta and deliv ers epidural bolus prior to manual removal of placenta. 100mcg IV fentanyl administered per MD order s. Datetime: 07/31/2020 01:30 Stage of : Recovery Datetime: 07/31/2020 01:28 UTERINE ACTIVITY Monitor Mode: Internal Quality: Strong Duration (sec): Pt pushes to delivery with active coaching by provider and nursing staff. Contraction Comments: Patient pushes to delivery with active coaching ASSESSMENT A Monitor Mode: Internal Scalp Electrode (Annotations: to EFM once FSE was disconnected by provider) FHR Baseline Rate : FHT dopple 165-60's Variability: Moderate 6-25 bpm Decelerations: Variable Vaginal Exam Comments: delivery of viable male apgars 9 _9 Datetime: 07/31/2020 01:15 Frequency (min): 2-3 Pattern: Normal: <= 5 Contractions in 10 Minutes Resting Tone (Palpate): Relaxed Resting Tone IUP (mmHg): 30 Intensity IUP (mmHg): 20-40 [place] Units (mmHg): 130 Accelerations: 15X15 Category: Category II Datetime: 07/31/2020 01:10 VAGINAL EXAM Dilatation (cm): 10.0 Datetime: 07/31/2020 01:01 Station: 2 Exam by: Chester Spears, RNC LaborFlag: Labor Datetime: 07/31/2020 01:00 Patient Care Comments: approximated time: account associate called for delivery re: meconium stained amn iotic fluid. Datetime: 07/31/2020 00:46 Temperature (C): 37.2 Datetime: 07/31/2020 00:44 Communication Comments: provider agrees to team plan of care as per to initiate amnioinfusion. once RN to bedside and performs cervical exam, it became evident that patient was nearing delivery. Datetime: 07/31/2020 00:03 MEDICATIONS Pitocin (milliunits): Increased to @ (Annotations: 13) Datetime: 07/30/2020 23:08 Effacement (%): 100 Cervix, Consistency: Soft Cervix, Position: Anterior Datetime: 07/30/2020 23:00 Actions for Decelerations: Side to Side Datetime: 07/30/2020 21:59 Medication Comments: 15cc bicitra given Datetime: 07/30/2020 21:20 Comments: end of tracing from #[id number] to #[id number] Datetime: 07/30/2020 21:08 Anesthesia Level Check: T10- Umbilicus Datetime: 07/30/2020 21:02 Monitor Interventions for UA: IUPC Inserted Datetime: 07/30/2020 21:00 FHR Baseline Changes: Return to Previous Baseline Datetime: 07/30/2020 19:38 Respirations: 16 Datetime: 07/30/2020 19:10 COMMUNICATION Communication: Report Given to @ K. Burckhardt, RNC Datetime: 07/30/2020 18:21 Patient Position/Activity: Left Tilt Datetime: 07/30/2020 18:14 Provider Notified (Name): Dr. Cheatham Datetime: 07/30/2020 17:36 Pain Presence: Intermittent Pain Type: Contraction Pain Location: Abdomen Pain Assessment Comments: feeling ctx on left side from upper abd to lower abd. Repositioned on L s ye. Datetime: 07/30/2020 17:30 Temperature Route: Oral Datetime: 07/30/2020 16:50 Pain Relief Measures: Pain Medication Given Datetime: 07/30/2020 16:39 Notification Reason: Patient Request Datetime: 07/30/2020 15:28 PATIENT CARE IV/Blood Work: New IV Bag Hung; IV Bag Number @ 3 Datetime: 07/30/2020 15:27 Antiemetics/Antacids: Other Antiemetic/Antacid @ TUMS 1000mg Datetime: 07/30/2020 15:12 Pitocin Checklist: At Least 1 Acceleration of 15 bpm x 15 Seconds in 30 Minutes or Adequate Variabi lity; No More than 1 Late Deceleration Occurred in Past 30 Minutes; No More than 2 Variable Decelerat ions > 60 Seconds in Duration and decreasing >60 bpm in 30 minutes; No More than 5 Uterine Contractio ns in 10 Minutes for any 20 Minute Interval; Uterus Palpates Soft between Contractions Datetime: 07/30/2020 14:53 Vaginal Bleeding: Normal Show Datetime: 07/30/2020 10:16 I/O Interventions: Peralta Cath Inserted Datetime: 07/30/2020 09:57 Oxygen Amount (LPM): 10 Datetime: 07/30/2020 09:41 Epidural Procedure: Loading Dose Datetime: 07/30/2020 09:30 Monitor Interventions for FHR: Ultrasound Adjusted Datetime: 07/30/2020 08:58 PROCEDURE TIME OUT Procedure Verify: Correct Patient Identity; Accurate Procedure Consent Form; Agreement on Procedure to be Done; Correct Patient Position ANESTHESIA Anesthesia Plans: Epidural Epidural Positioning: Sitting
== END 2020-08-03 13:10 | disposition home or self-care (01) ==
LOC: WFO 11:47 → FBP 11:48 → WFO 13:10
PROVIDERS: ATTEND Pediatrics
DX: Z39.1 Encounter for care and examination of lactating mother (principal)
CPT/HCPCS: 99404

== ENCOUNTER 2020-08-04 11:26 | Outpatient (CLI) | payer OTHER ==
--- NOTE | 2020-08-04 13:35 | Labor Flowsheet ---
Labor Flowsheet Datetime Report Generated by CPN: 08/04/2020 13:35 Datetime: 08/03/2020 12:00 Stage of : VITAL SIGNS NBP Sys/Liz/Mean (mmHg): 129 : 79 Pulse: 68 Respirations: 18 PAIN Pain Scale: 0 Datetime: 08/02/2020 11:40 : 76 Datetime: 08/01/2020 16:25 SpO2 (%): 99 Datetime: 07/31/2020 02:15 Epidural Procedure Other: Cath Removed; Cath Intact (Annotations: pump stopped and epidural catheter removed intact) Datetime: 07/31/2020 01:50 Analgesics/Sedatives: Fentanyl (mcg) @ (Annotations: 100mcg for placental extraction. ) Datetime: 07/31/2020 01:46 STAGE 2 Stage 2 Comments: delivery of placenta with manual removal. see provider documentation of removal. Datetime: 07/31/2020 01:42 Anesthesia Comments: anesthesia provider remains on labor deck until delivery of placenta and deliv ers epidural bolus prior to manual removal of placenta. 100mcg IV fentanyl administered per MD order s. Datetime: 07/31/2020 01:28 UTERINE ACTIVITY Monitor Mode: Internal Quality: Strong Duration (sec): Pt pushes to delivery with active coaching by provider and nursing staff. Contraction Comments: Patient pushes to delivery with active coaching ASSESSMENT A Monitor Mode: Internal Scalp Electrode (Annotations: to EFM once FSE was disconnected by provider) FHR Baseline Rate : FHT dopple 165-60's Variability: Moderate 6-25 bpm Decelerations: Variable Vaginal Exam Comments: delivery of viable male apgars 9 _9 Datetime: 07/31/2020 01:15 Frequency (min): 2-3 Pattern: Normal: <= 5 Contractions in 10 Minutes Resting Tone (Palpate): Relaxed Resting Tone IUP (mmHg): 30 Intensity IUP (mmHg): 20-40 [place] Units (mmHg): 130 Accelerations: 15X15 Category: Category II Datetime: 07/31/2020 01:10 VAGINAL EXAM Dilatation (cm): 10.0 Datetime: 07/31/2020 01:01 Station: 2 Exam by: Chester Spears RNC LaborFlag: Labor Datetime: 07/31/2020 01:00 Patient Care Comments: approximated time: accounting professor called for delivery re: meconium stained amn iotic fluid. Datetime: 07/31/2020 00:46 Temperature (C): 37.2 Datetime: 07/31/2020 00:44 Communication Comments: provider agrees to team plan of care as per to initiate amnioinfusion. once RN to bedside and performs cervical exam, it became evident that patient was nearing delivery. Datetime: 07/31/2020 00:03 MEDICATIONS Pitocin (milliunits): Increased to @ (Annotations: 13) Datetime: 07/30/2020 23:08 Effacement (%): 100 Cervix, Consistency: Soft Cervix, Position: Anterior Datetime: 07/30/2020 23:00 Actions for Decelerations: Side to Side Datetime: 07/30/2020 21:59 Medication Comments: 15cc bicitra given Datetime: 07/30/2020 21:20 Comments: end of tracing from #[id number] to #[id number] Datetime: 07/30/2020 21:08 Anesthesia Level Check: T10- Umbilicus Datetime: 07/30/2020 21:02 Monitor Interventions for UA: IUPC Inserted Datetime: 07/30/2020 21:00 FHR Baseline Changes: Return to Previous Baseline Datetime: 07/30/2020 19:10 COMMUNICATION Communication: Report Given to @ KCe Spears, RNC Datetime: 07/30/2020 18:21 Patient Position/Activity: Left Tilt Datetime: 07/30/2020 18:14 Provider Notified (Name): Dr. Cheatham Datetime: 07/30/2020 17:36 Pain Presence: Intermittent Pain Type: Contraction Pain Location: Abdomen Pain Assessment Comments: feeling ctx on left side from upper abd to lower abd. Repositioned on L s ye. Datetime: 07/30/2020 17:30 Temperature Route: Oral Datetime: 07/30/2020 16:50 Pain Relief Measures: Pain Medication Given Datetime: 07/30/2020 16:39 Notification Reason: Patient Request Datetime: 07/30/2020 15:28 PATIENT CARE IV/Blood Work: New IV Bag Hung; IV Bag Number @ 3 Datetime: 07/30/2020 15:27 Antiemetics/Antacids: Other Antiemetic/Antacid @ TUMS 1000mg Datetime: 07/30/2020 15:12 Pitocin Checklist: At Least 1 Acceleration of 15 bpm x 15 Seconds in 30 Minutes or Adequate Variabi lity; No More than 1 Late Deceleration Occurred in Past 30 Minutes; No More than 2 Variable Decelerat ions > 60 Seconds in Duration and decreasing >60 bpm in 30 minutes; No More than 5 Uterine Contractio ns in 10 Minutes for any 20 Minute Interval; Uterus Palpates Soft between Contractions Datetime: 07/30/2020 14:53 Vaginal Bleeding: Normal Show Datetime: 07/30/2020 10:16 I/O Interventions: Peralta Cath Inserted Datetime: 07/30/2020 09:57 Oxygen Amount (LPM): 10 Datetime: 07/30/2020 09:41 Epidural Procedure: Loading Dose Datetime: 07/30/2020 09:30 Monitor Interventions for FHR: Ultrasound Adjusted Datetime: 07/30/2020 08:58 PROCEDURE TIME OUT Procedure Verify: Correct Patient Identity; Accurate Procedure Consent Form; Agreement on Procedure to be Done; Correct Patient Position ANESTHESIA Anesthesia Plans: Epidural Epidural Positioning: Sitting
== END 2020-08-04 12:30 | disposition home or self-care (01) ==
LOC: WFO 11:26 → FBP 11:28 → WFO 12:30
PROVIDERS: ATTEND Pediatrics
DX: Z39.1 Encounter for care and examination of lactating mother (principal)
CPT/HCPCS: 99402

== ENCOUNTER 2020-08-15 10:50 | Outpatient (CLI) | payer OTHER ==
[2020-08-15 11:12] LABS: BASOPHILS % (AUTO) 0.3 %; EOSINOPHILS # (AUTO) 0.1 10^3/uL (0.0-0.7); EOSINOPHILS % (AUTO) 1.7 %; HGB - HEMOGLOBIN 9.8 g/dL (12.0-16.0); LYMPHOCYTES # (AUTO) 1.4 10^3/uL (1.5-3.5); LYMPHOCYTES % (AUTO) 24.1 %; MEAN CORPUSCULAR HEMOGLOBIN 27.9 pg (27.0-31.0); MEAN CORPUSCULAR HGB CONC 31.6 g/dL (32.0-36.0); MEAN CORPUSCULAR VOLUME 88.3 fL (81.0-99.0); MEAN PLATELET VOLUME 8.4 fL (7.9-10.8); MONOCYTES # (AUTO) 0.6 10^3/uL (0.0-1.0); NEUTROPHILS # (AUTO) 3.7 10^3/uL (1.5-6.6); NEUTROPHILS % (AUTO) 63.6 %; PLT - PLATELET COUNT 420 10^3/uL (130-450); RED BLOOD COUNT 3.51 10^6/uL (4.20-5.40); RED CELL DISTRIBUTION WIDTH 14.1 % (12.0-15.0); WHITE BLOOD COUNT 5.8 x10^3/uL (4.8-10.8)
[2020-08-15 11:22] LABS: ALBUMIN 3.4 g/dL (3.2-5.5); ALBUMIN/GLOBULIN RATIO 0.8 (1.0-2.2); BILIRUBIN,TOTAL 0.4 mg/dL (0.2-1.0); CALCIUM 9.6 mg/dL (8.5-10.3); CREATININE 0.6 mg/dL (0.4-1.0); TOTAL PROTEIN 7.6 g/dL (6.7-8.2)
[2020-08-15 12:00] LABS: CREATININE,URINE 127.1 mg/dL; PROTEIN/CREATININE RATIO,URINE 0.1 (<=0.2)
[2020-08-15 12:04] VITALS: BP 131/80
--- NOTE | 2020-08-15 12:52 | PROVIDER PROGRESS NOTE ---
- HPI Chief Complaint: Hypertension/PIH Current : Vital Signs Temperature 36.9 C 08/15/20 10:59 Heart Rate 65 08/15/20 10:59 Respiratory Rate 16 08/15/20 10:59 Blood Pressure 140/64 H 08/15/20 10:59 O2 Saturation 100 08/15/20 10:59 Temperature 36.9 C 08/15/20 10:59 Heart Rate 63 08/15/20 11:59 Respiratory Rate 100 H 08/15/20 11:45 Blood Pressure 131/80 H 08/15/20 11:59 O2 Saturation 100 08/15/20 11:59 - Procedures NST Procedure: NST Procedure Start Time 11:30 Stop Time 12:00 - Plan Plan: S: BPs elevated during routine visit today. Sent to Triage for evaluation. Objective: Serial BP's: highest 140/64: otherwise 130s over 60-80s. Labs: CMP- wnl (potassium and albumin/globulin slightly low) Protein: Creatinine- 0.1 (wnl) Assessment: BPs wnl, labs wnl Plan: Discharged to home with preeclampsia warning signs education and instructed to take BP daily and report any over 140/90 or for any symptoms.
== END 2020-08-15 12:20 | disposition home or self-care (01) ==
LOC: WFO 10:50 → FBP 10:52 → WFO 12:20
PROVIDERS: ATTEND Advanced Practice Midwife
DX: O16.5 Unspecified maternal hypertension, complicating the puerperium (principal); R79.89 Other specified abnormal findings of blood chemistry
CPT/HCPCS: 36415; 80053; 82570; 84156; 85025

== ENCOUNTER 2020-12-30 14:04 | Outpatient (CLI) | payer OTHER | END 2020-12-30 14:05 | disposition critical access hospital (66) | LOC: EMS 14:04 | PROVIDERS: ATTEND Registered Nurse | DX: R07.9 Chest pain, unspecified (principal); R06.4 Hyperventilation | CPT/HCPCS: A0425; A0429 ==

== ENCOUNTER 2020-12-30 14:21 | Emergency (ER) | payer OTHER ==
--- NOTE | 2020-12-30 15:35 | XRAY Report ---
PROCEDURE: Chest 1 View X-Ray INDICATIONS: Chest Pain TECHNIQUE: One view of the chest was acquired. COMPARISON: None FINDINGS: Surgical changes and devices: None. Lungs and pleura: No pleural effusions or pneumothorax. Lungs are clear. Mediastinum: Mediastinal contours appear normal. Heart size is normal. Bones and chest wall: No suspicious bony lesions. Overlying soft tissues appear unremarkable. IMPRESSION: No acute pulmonary process. Reviewed by: Janessa Puri MD on 12/30/2020 3:34 PM PST Approved by: Janessa Puri MD on 12/30/2020 3:34 PM [facility] Station ID: [id number]
[2020-12-30 15:43] LABS: BASOPHILS % (AUTO) 0.3 %; EOSINOPHILS % (AUTO) 0.5 %; HGB - HEMOGLOBIN 12.2 g/dL (12.0-16.0); LYMPHOCYTES # (AUTO) 1.7 10^3/uL (1.5-3.5); LYMPHOCYTES % (AUTO) 28.6 %; MEAN CORPUSCULAR HEMOGLOBIN 26.1 pg (27.0-31.0); MEAN CORPUSCULAR HGB CONC 31.5 g/dL (32.0-36.0); MEAN CORPUSCULAR VOLUME 82.7 fL (81.0-99.0); MEAN PLATELET VOLUME 8.9 fL (7.9-10.8); MONOCYTES # (AUTO) 0.4 10^3/uL (0.0-1.0); MONOCYTES % (AUTO) 7.6 %; NEUTROPHILS # (AUTO) 3.6 10^3/uL (1.5-6.6); NEUTROPHILS % (AUTO) 62.8 %; PLT - PLATELET COUNT 368 10^3/uL (130-450); RED BLOOD COUNT 4.68 10^6/uL (4.20-5.40); RED CELL DISTRIBUTION WIDTH 13.7 % (12.0-15.0); WHITE BLOOD COUNT 5.8 x10^3/uL (4.8-10.8)
[2020-12-30 16:12] LABS: ALBUMIN 3.8 g/dL (3.2-5.5); ALBUMIN/GLOBULIN RATIO 0.8 (1.0-2.2); BILIRUBIN,TOTAL 0.4 mg/dL (0.2-1.0); CALCIUM 9.8 mg/dL (8.5-10.3); CREATININE 0.8 mg/dL (0.4-1.0); TOTAL PROTEIN 8.3 g/dL (6.7-8.2)
[2020-12-30 16:20] VITALS: BP 137/75
--- NOTE | 2020-12-30 16:26 | ED Physician Documentation ---
History of Present Illness - Stated complaint Stated Complaint: CHEST PX - Chief complaint Chief Complaint: Cardiac - Additonal information Additional information: 25-year-old female presents to the emergency department for evaluation of acute sharp pleuritic chest pain that began approximately 3 hours ago. She reports that she was driving and felt left-sided chest pain that got worse with taking deep breaths. No recent cough or fevers. No hemoptysis. No recent travel, surgery or unilateral leg swelling. She denies shortness of breath. She is a non-smoker. Does not have a history of coronary artery disease. She does take estrogen containing oral control daily. No family history of DVT or pulmonary embolus. No family history of sudden or early cardiac . Review of Systems Constitutional: reports: Reviewed and negative Ears: reports: Reviewed and negative Nose: reports: Reviewed and negative Throat: reports: Reviewed and negative Cardiac: reports: Chest pain / pressure. denies: Palpitations, Pedal edema, Calf pain Respiratory: reports: Reviewed and negative GI: reports: Reviewed and negative : reports: Reviewed and negative PD PAST MEDICAL HISTORY - Past Medical History Past Medical History: Yes Cardiovascular: Hypertension Endocrine/Autoimmune: Type 2 diabetes - Past Surgical History Past Surgical History: No - Present Medications Home Medications: Ambulatory Orders Medication Instructions Recorded Confirmed Pnv No.103/Folic/Om3s/Fish Oil 1 tab PO DAILY 12/16/19 04/03/20 [ Gummies] Aspirin Chewable [[place] 81 mg PO DAILY #30 tablet 04/01/20 04/03/20 Aspirin] Butalb/Acetaminophen/Caffeine 1 each PO Q4HR PRN #50 capsule MDD 04/01/20 04/03/20 [Fioricet 50-300-40 mg Capsule] 4 Calcium Carbonate/Vitamin D3 2 each PO DAILY 30 Days #60 04/01/20 04/03/20 [Calcium 500-Vit D3 400 Chew Tb] tab.chew NIFEdipine [Nifedipine ER] 60 mg PO DAILY 04/03/20 04/03/20 Ibuprofen [Motrin] 600 mg PO Q6H PRN #30 tab 12/30/20 - Allergies Allergies/Adverse Reactions: Allergies Allergy/AdvReac Type Severity Reaction Status Date / Time No Known Drug Allergies Allergy Verified 04/01/20 15:49 - Social History Does the pt smoke?: No Smoking Status: Never smoker PD ED PE NORMAL - General General: Alert and oriented X 3, No acute distress - HEENT HEENT: PERRL - Neck Neck: Supple, no meningeal sign - Cardiac Cardiac: RRR, No murmur, No gallop, No rub, Strong equal pulses - Respiratory Respiratory: Clear bilaterally - Abdomen Abdomen: Normal bowel sounds, Soft, Non tender, Non distended - Back Back: No CVA TTP Results - Vitals Vitals: Vital Signs - 24 hr 12/30/20 12/30/20 12/30/20 14:28 16:19 16:23 Temperature 36.2 C L 37.1 C Heart Rate 75 71 62 Respiratory 18 19 18 Rate Blood Pressure 147/78 H 137/75 H 137/75 H O2 Saturation 100 100 99 12/30/20 17:04 Temperature Heart Rate 72 Respiratory 18 Rate Blood Pressure 137/75 H O2 Saturation 99 Oxygen O2 Source Room air - EKG (time done) 1431 Rate: Rate (enter#) (68) Rhythm: NSR Irving: Normal Intervals: Normal SC QRS: Normal Ischemia: Non specific changes (inferior leads t wave flattening) Compare to prior EKG: Old EKG unavailable Computer interpretation: Agree with computer - Labs Labs: Laboratory Tests 12/30/20 12/30/20 12/30/20 15:39 15:39 15:39 WBC 5.8 RBC 4.68 Hgb 12.2 Hct 38.7 MCV 82.7 MCH 26.1 L MCHC 31.5 L RDW 13.7 Plt Count 368 MPV 8.9 Neut # (Auto) 3.6 Lymph # (Auto) 1.7 Morrison # (Auto) 0.4 Eos # (Auto) 0.0 Baso # (Auto) 0.0 Absolute Nucleated RBC 0.00 Nucleated RBC % 0.0 D-Dimer Sodium 138 Potassium 3.5 Chloride 101 Carbon Dioxide 25 Anion Gap 12.0 BUN 8 Creatinine 0.8 Estimated GFR (MDRD) 104 Glucose 92 Calcium 9.8 Total Bilirubin 0.4 AST 20 ALT 16 Alkaline Phosphatase 87 Troponin I High Sens < 2.3 L Total Protein 8.3 H Albumin 3.8 Globulin 4.5 H Albumin/Globulin Ratio 0.8 L Lipase 31 12/30/20 16:23 WBC RBC Hgb Hct MCV MCH MCHC RDW Plt Count MPV Neut # (Auto) Lymph # (Auto) Morrison # (Auto) Eos # (Auto) Baso # (Auto) Absolute Nucleated RBC Nucleated RBC % D-Dimer 230.0 Sodium Potassium Chloride Carbon Dioxide Anion Gap BUN Creatinine Estimated GFR (MDRD) Glucose Calcium Total Bilirubin AST ALT Alkaline Phosphatase Troponin I High Sens Total Protein Albumin Globulin Albumin/Globulin Ratio Lipase PD MEDICAL DECISION MAKING - ED course Complexity details: reviewed results, re-evaluated patient, considered differential, d/w patient ED course: 25-year-old female presents emergency department for evaluation of acute onset pleuritic chest pain that occurred at about 1 or 130 this afternoon while driving. She has no history of hypertension or smoking however due to estrogen- containing oral contraceptive use could not PERC her negative. Screening EKG is nonischemic. High-sensitivity troponin is negative. Chest x- ray shows no acute focal abnormalities. A D-dimer was completed and is within normal limits. Suspicion for a pulmonary embolus is quite low. Patient was given Toradol here in the emergency department with full relief of the pain. She has not been hypoxic or tachypneic. We discussed these findings and I did offer a CT angio of her chest however she feels better and would like to be discharged home. We discussed that if the symptoms worsen, she has hemoptysis sudden shortness of breath she is to return to the ER for a second look. Departure - Departure Disposition: 01 Home, Self Care Clinical Impression: Pleuritic chest pain Condition: Stable Record reviewed to determine appropriate education?: Yes Instructions: ED Chest Pain NonCardiac Prescriptions: Ibuprofen [Motrin] 600 mg PO Q6H PRN #30 tab PRN Reason: Pain Comments: You were seen in the emergency department today for pleuritic chest pain. This is chest pain that gets worse when you take a deep breath. Your screening EKG did not show any worrisome findings. A troponin, which is a lab used to measure heart ischemia was not elevated thus normal. Your chest x-ray was also unremarkable. There is certainly no pneumonia or broken bones. Your screening labs including your blood count and chemistry panel was essentially normal. We did check a lab called a D-dimer to assess your risk for developing clots abnormally. This was also normal. Therefore as we discussed this is suspicion that you could have a pulmonary embolus is thought to be very low. I would like you to take ibuprofen at home with food 2-3 times a day. Follow-up with [facility] as soon as possible. If at any point you find that your chest pain worsens, you are suddenly short of air or have fainting episodes or swelling in your legs please return to the emergency department. At that time we would need to complete the imaging with a CAT scan.
[2020-12-30] MEDS ORDERED: KETOROLAC 30 MG/ML VIAL IVP STA (16:47)
== END 2020-12-30 17:20 | disposition home or self-care (01) ==
LOC: EDUNIT# → ED 14:21
DX: R07.81 Pleurodynia (principal)
CPT/HCPCS: 36415; 80053; 83690; 84484; 85025; 85379; 93005; 96374; 99284

== ENCOUNTER 2021-06-16 08:12 | Outpatient (CLI) | payer OTHER ==
--- NOTE | 2021-06-16 09:47 | XRAY Report ---
PROCEDURE: Lumbar Spine 2 View INDICATIONS: LOW BACK PAIN TECHNIQUE: 3 views of the lumbar spine were acquired. COMPARISON: None. FINDINGS: Bones: 5 [id number] vertebrae are present. There is normal bony alignment. No vertebral body compression fractures. No suspicious bony lesions. Soft tissues: Overlying bowel gas pattern is normal. No suspicious soft tissue calcifications. IMPRESSION: Unremarkable radiographic examination of lumbar spine. Reviewed by: Iftikhar Piper MD on 06/16/2021 9:46 AM PDT Approved by: Iftikhar Piper MD on 06/16/2021 9:46 AM PDT Station ID: [id number]
== END 2021-06-16 23:59 | disposition home or self-care (01) ==
LOC: DI.N 08:12
PROVIDERS: ATTEND Physician Assistant Medical
DX: M54.5 Low back pain (principal)

== ENCOUNTER 2021-12-26 08:00 | Outpatient (CLI) | payer OTHER | END 2021-12-26 23:59 | disposition home or self-care (01) | LOC: LAB.N 08:00 | PROVIDERS: ATTEND Nurse Practitioner | DX: R05.9 Cough, unspecified (principal); R07.9 Chest pain, unspecified; Z20.822 Contact with and (suspected) exposure to COVID-19 ==

== ENCOUNTER 2021-12-26 14:46 | Outpatient (CLI) | payer OTHER ==
--- NOTE | 2021-12-26 16:25 | XRAY Report ---
PROCEDURE: Chest 2 View X-Ray INDICATIONS: BRONCHITIS TECHNIQUE: 2 view(s) of the chest. COMPARISON: None. FINDINGS: Surgical changes and devices: None. Lungs and pleura: No pleural effusions or pneumothorax. Lungs are clear. Mediastinum: Mediastinal contours are normal. Heart size is normal. Bones and chest wall: No suspicious bony abnormalities. Soft tissues appear unremarkable. IMPRESSION: No acute cardiopulmonary process demonstrated radiographically. Reviewed by: Bakari Herrera MD on 12/26/2021 4:24 PM PST Approved by: Bakari Herrera MD on 12/26/2021 4:24 PM PST Station ID: [id number]
== END 2021-12-26 23:59 | disposition home or self-care (01) ==
LOC: DI.N 14:46
PROVIDERS: ATTEND Nurse Practitioner
DX: J40 Bronchitis, not specified as acute or chronic (principal)

== ENCOUNTER 2022-01-03 11:08 | Emergency (ER) | payer OTHER ==
[2022-01-03 11:31] VITALS: BP 158/78
[2022-01-03] MEDS ORDERED: BENZONATATE 100 MG CAPSULE PO STA (12:34)
[2022-01-03] MEDS: predniSONE 20 MG TABLET PO STA (12:42)
--- NOTE | 2022-01-03 12:44 | ED Physician Documentation ---
History of Present Illness - Stated complaint Stated Complaint: CHEST PX,COUGH,SOA - Chief complaint Chief Complaint: Resp - History obtained from History obtained from: Patient - History of Present Illness Timing: How many weeks ago (2-3) Pain level max: 2 Pain level now: 1 - Additonal information Additional information: 26-year-old female presents to the emergency department with cough, congestion and wheezing for the past 2 to 3 weeks. Has had a negative Covid test last week. Negative chest x-ray. Has had increased wheezing. She was started on prednisone 40 mg daily as well as albuterol inhaler with spacer. She states she is still having coughing. She states that her chest still feels tight. No fevers. No chills. Denies any possibility of . Review of Systems Constitutional: denies: Fever, Chills Throat: denies: Sore throat Cardiac: denies: Chest pain / pressure Respiratory: reports: Dyspnea, Cough, Wheezing GI: denies: Vomiting, Diarrhea : denies: Now EGA Skin: denies: Rash Musculoskeletal: denies: Neck pain, Back pain PD PAST MEDICAL HISTORY - Past Medical History Cardiovascular: Hypertension Endocrine/Autoimmune: Type 2 diabetes - Past Surgical History Past Surgical History: No - Present Medications Home Medications: Ambulatory Orders Medication Instructions Recorded Confirmed Pnv No.103/Folic/Om3s/Fish Oil 1 tab PO DAILY 12/16/19 04/03/20 [ Gummies] Aspirin Chewable [St Octavio 81 mg PO DAILY #30 tablet 04/01/20 04/03/20 Aspirin] Butalb/Acetaminophen/Caffeine 1 each PO Q4HR PRN #50 capsule MDD 04/01/20 04/03/20 [Fioricet 50-300-40 mg Capsule] 4 Calcium Carbonate/Vitamin D3 2 each PO DAILY 30 Days #60 04/01/20 04/03/20 [Calcium 500-Vit D3 400 Chew Tb] tab.chew NIFEdipine [Nifedipine ER] 60 mg PO DAILY 04/03/20 04/03/20 Ibuprofen [Motrin] 600 mg PO Q6H PRN #30 tab 12/30/20 Albuterol Sulf [Ventolin Hfa 1 - 2 puffs INH Q4HR PRN #1 inhaler 01/03/22 Inhaler] Benzonatate [Tessalon] 200 mg PO TID PRN #30 cap 01/03/22 predniSONE [Deltasone] 10 mg PO [id number] #42 tab 01/03/22 - Allergies Allergies/Adverse Reactions: Allergies Allergy/AdvReac Type Severity Reaction Status Date / Time No Known Drug Allergies Allergy Verified 01/03/22 11:31 - Social History Does the pt smoke?: No Smoking Status: Never smoker PD ED PE NORMAL - Vitals Vital signs reviewed: Yes - General General: Alert and oriented X 3, No acute distress, Well developed/nourished - HEENT HEENT: PERRL, Moist mucous membranes - Neck Neck: Supple, no meningeal sign - Cardiac Cardiac: RRR, Strong equal pulses - Respiratory Respiratory: No respiratory distress, Other (Mild wheezing bilaterally. No distress) - Abdomen Abdomen: Soft, Non tender, Non distended - Derm Derm: Warm and dry - Extremities Extremities: No edema - Neuro Neuro: Alert and oriented X 3 - Psych Psych: Normal mood, Normal affect Results - Vitals Vitals: Vital Signs - 24 hr 01/03/22 01/03/22 11:26 13:41 Temperature 36.0 C L Heart Rate 69 68 Respiratory 20 20 Rate Blood Pressure 158/78 H O2 Saturation 99 Oxygen O2 Source Room air - EKG (time done) 1134 Rate: Rate (enter#) (76) Rhythm: NSR [place]: Normal Intervals: Normal DE QRS: Normal Ischemia: T wave inversion (v3-6, III, aVL, II) PD MEDICAL DECISION MAKING - ED course Complexity details: reviewed results, re-evaluated patient, considered differential, d/w patient ED course: Patient with what appears to be a viral upper respiratory infection. Had a negative Covid test already. Normal x-ray. We will increase her steroids. Symptoms resolved with DuoNeb treatment here. Patient is well-appearing, nontoxic. Afebrile. No hypoxia or respiratory distress. No indication for antibiotics. Patient counseled regarding signs and symptoms for which I believe and urgent re-evaluation would be necessary. Patient with good understanding of and agreement to plan and is comfortable going home at this time This document was made in part using voice recognition software. While efforts are made to proofread this document, sound alike and grammatical errors may occur. Departure - Departure Disposition: 01 Home, Self Care Clinical Impression: Viral upper respiratory infection Condition: Good Instructions: ED Viral Syndrome Follow-Up: Your,doctor in 1 week [Other] Prescriptions: Albuterol Sulf [Ventolin Hfa Inhaler] 1 - 2 puffs INH Q4HR PRN #1 inhaler PRN Reason: Shortness Of Air/Wheezing predniSONE [Deltasone] 10 mg PO [id number] #42 tab Benzonatate [Tessalon] 200 mg PO TID PRN #30 cap PRN Reason: Cough Comments: Please follow-up with your doctor for further care. Return if you worsen. Your prescriptions were sent to [facility] in [place]. Discharge Date/Time: 01/03/22 13:59
[2022-01-03] MEDS ORDERED: IPRATROPIUM/ALBUTEROL 3 ML NEB INH STA (13:08)
== END 2022-01-03 13:59 | disposition home or self-care (01) ==
LOC: ED 11:08
DX: J06.9 Acute upper respiratory infection, unspecified (principal); I10 Essential (primary) hypertension; E11.9 Type 2 diabetes mellitus without complications; Z20.822 Contact with and (suspected) exposure to COVID-19
CPT/HCPCS: 87635; 93005; 94640; 94664; 99283; 99284; A9270; J7512

== ENCOUNTER 2022-04-07 07:29 | Emergency (ER) | payer OTHER ==
[2022-04-07 07:39] VITALS: BP 149/77
[2022-04-07] MEDS ORDERED: NIRMATRELVIR/RITONAVIR PREPACK PO STA (07:49)
--- NOTE | 2022-04-07 07:51 | ED Physician Documentation ---
PD HPI HEADACHE - Stated complaint Stated Complaint: C+/SOA/HEADACHE - Chief complaint Chief Complaint: Heent - History obtained from History obtained from: Patient - Additional information Additional information: 26-year-old presents with symptomatic COVID since yesterday. Symptoms are fever, body aches, sore throat and headache. She tested positive at home and her was recently positive as well. She has an underlying history of lung disease and no possibility of . Review of Systems Constitutional: reports: Fever, Chills, Myalgias, Fatigue Nose: reports: Rhinorrhea / runny nose Throat: reports: Sore throat Respiratory: reports: Cough. denies: Dyspnea PD PAST MEDICAL HISTORY - Past Medical History Past Medical History: Yes Cardiovascular: Hypertension Respiratory: None Neuro: None Endocrine/Autoimmune: Type 2 diabetes HEENT: None - Past Surgical History Past Surgical History: No - Present Medications Home Medications: Ambulatory Orders Medication Instructions Recorded Confirmed Pnv No.103/Folic/Om3s/Fish Oil 1 tab PO DAILY 12/16/19 04/03/20 [ Gummies] Aspirin Chewable [St Octavio 81 mg PO DAILY #30 tablet 04/01/20 04/03/20 Aspirin] Butalb/Acetaminophen/Caffeine 1 each PO Q4HR PRN #50 capsule MDD 04/01/20 04/03/20 [Fioricet 50-300-40 mg Capsule] 4 Calcium Carbonate/Vitamin D3 2 each PO DAILY 30 Days #60 04/01/20 04/03/20 [Calcium 500-Vit D3 400 Chew Tb] tab.chew NIFEdipine [Nifedipine ER] 60 mg PO DAILY 04/03/20 04/03/20 Ibuprofen [Motrin] 600 mg PO Q6H PRN #30 tab 12/30/20 Albuterol Sulf [Ventolin Hfa 1 - 2 puffs INH Q4HR PRN #1 inhaler 01/03/22 Inhaler] Benzonatate [Tessalon] 200 mg PO TID PRN #30 cap 01/03/22 predniSONE [Deltasone] 10 mg PO [id number] #42 tab 01/03/22 HYDROcod/ACETAM 5/325 [Fowler 5/325] 1 - 2 tab PO Q6H PRN #15 tablet 04/07/22 - Allergies Allergies/Adverse Reactions: Allergies Allergy/AdvReac Type Severity Reaction Status Date / Time No Known Drug Allergies Allergy Verified 04/07/22 07:39 - Social History Does the pt smoke?: No Smoking Status: Never smoker PD ED PE NORMAL - Vitals Vital signs reviewed: Yes - General General: Alert and oriented X 3, No acute distress - HEENT HEENT: Pharynx benign - Neck Neck: Supple, no meningeal sign, No bony TTP - Cardiac Cardiac: RRR, No murmur - Respiratory Respiratory: No respiratory distress, Clear bilaterally - Abdomen Abdomen: Non tender - Derm Derm: No rash - Neuro Neuro: Alert and oriented X 3, Normal speech Results - Vitals Vitals: Vital Signs - 24 hr 04/07/22 07:36 Temperature 38.0 C H Heart Rate 94 Respiratory 20 Rate Blood Pressure 149/77 H O2 Saturation 99 Oxygen O2 Source Room air PD MEDICAL DECISION MAKING - ED course ED course: 26-year-old woman with symptomatic COVID given her BMI and history of underlying lung disease she is a candidate for antiviral therapy. She needed a repeat COVID test per her for the . Paxlovid was dispensed. Departure - Departure Disposition: Home, Self Care Clinical Impression: COVID Condition: Good Record reviewed to determine appropriate education?: Yes Instructions: ED Viral Syndrome Prescriptions: HYDROcod/ACETAM 5/325 [Fowler 5/325] 1 - 2 tab PO Q6H PRN #15 tablet PRN Reason: Pain Comments: I sent your prescription electronically to [facility] in [place] given that they have the drive-through. Otherwise you need to continue to isolate through April 16. Return if worse. You can take ibuprofen in addition to the hydrocodone for pain. Hydrocodone will also help with cough. I am prescribing a short course of narcotic pain medication for you. These are potentially dangerous and addictive medications that should be used carefully. These medications may constipate you. Take an [id number] stool softener (docusate) twice daily with plenty of water while taking these medications. If you go 24 hours without a bowel movement, take [id number] miralax, per package instructions. Do not drink or drive while taking these medications. If you received narcotic or sedating medications while in the emergency department, do not drive for 24 hours. Store this medication in a safe, secure place and out of reach of children. It is a violation of federal law to give or sell this medication to another person or to use in a manner other than prescribed. The ED will not refill narcotic prescriptions, including prescriptions lost or stolen. To dispose of unwanted medications: 1. [facility] at [address] in [place] has a medication drop box. They accept prescription medications (in pill form) Saturday through Saturday 9:00 a.m. to 5:00 p.m. 2. [facility] accepts prescription medications (in pill form only) for disposal year round. Call for more information. 3. Contact the [facility] for the next [facility] sponsored prescription drug collection event. , x7310, or [phone]; Note that many narcotic pain relievers also contain Tylenol/acetaminophen. Please ensure that your total dose of acetaminophen from all sources does not exceed 3 g (3000 mg) per day. Forms: Activity restrictions Discharge Date/Time: 04/07/22 08:09
[2022-04-07] MEDS ORDERED: IBUPROFEN 800 MG TABLET PO STA (07:55)
== END 2022-04-07 08:09 | disposition home or self-care (01) ==
LOC: ED 07:29
DX: U07.1 COVID-19 (principal); I10 Essential (primary) hypertension; E11.9 Type 2 diabetes mellitus without complications; Z79.84 Long term (current) use of oral hypoglycemic drugs
CPT/HCPCS: 87635; 99282; 99283; A9270; J3490